=== PATIENT | male | born 1950 | race Caucasian/White ===

== ENCOUNTER 2024-06-11 14:55 | Inpatient (IN) | payer MEDICARE, BC, SELFPAY ==
[2024-06-11] VITALS (7 sets, daily range): BP systolic 147–192; BP diastolic 84–101; PULSE 61–72; RESP 16–18; TEMP 36.2–36.7; O2SAT 95–96; BMI 30.4
--- OUTSIDE RECORDS SUMMARY | 2024-06-11 14:56 | XMS_ITS | Clinical Summary ---
Author Organization [facility] Address [place], [place] [address] Care Team Providers Care Media Manager Name Role Phone Neil Parker MD Primary Care Provider Allergies No known active allergies Medications PRILOSEC 20 MG CAP take 1 capsule (20 mg) by oral route once daily before a meal 0 08/05/2008 Active fluticasone, 50 mcg per actuation, nasal (FLONASE) 50 mcg/Actuation nasal sprayIndication s:Nasal congestion Inhale 2 Sprays into both nostrils once daily. [place] dose in each nostril. 1 Bottle 12 07/26/2009 Active Active Problems Problem Noted Date Diagnosed Date Routine adult health maintenance 07/17/2013 Overview (07/17/2013): Colonoscopy 07/2013 normal repeat in 10 years Unspecified asthma(493.90) 08/13/2006 Simple or unspecified chronic serous otitis medi a 08/13/2006 Other dyspnea and respiratory abnormality 2006 Immunizations Name Administration Dates Next Due Td (Age >=7 Years) 01/03/1999 Tdap 08/05/2008 Family History Medical History Relation Name Comments Diabetes Father Hypertension Father Relation Name Status Comments Father Social History Tobacco Use Types Packs/Day Years Used Date Smoking Tobacco: Never Smokeless Tobacco: Never Tobacco Cessation:Counseling Given: Yes Alcohol Use Standard Drinks/Week Comments No 1.7 (1 standard drink = 0.6 oz p ure alcohol) Sex and Gender Information Value Date Recorded Sex Assigned at Not on file Legal Sex Male 5:42 AM [employer] Gender Identity Not on file Sexual Orientation Not on file Obstetrics History Last Filed Vital Signs Vital Sign Reading Time Taken Comments Blood Pressure 162/91 12/09/2014 5:58 PM CDT Pulse 69 12/09/2014 5:59 PM CDT Temperature 36.9 C (98.5 F) 12/09/2014 5:59 PM CDT Respiratory Rate - - Oxygen Saturation 96% 12/09/2014 5:59 PM CDT Inhaled Oxygen Concentration - - Weight 92.9 kg (204 lb 12.8 oz) 12/09/2014 5:58 PM CDT Height 175.3 cm (5' 9) 07/26/2009 9:27 AM [employer] Body Mass Index 30.24 07/26/2009 9:27 AM [employer] Plan of Treatment Health Maintenance Due Date Last Done Comments Depression screening for age 12+ 1963 BMI (ht and wt on same day) for age 18+ 1969 Hepatitis C screening for age 18-79 1969 Pneumococcal series for age 50+ (1 of 1 - PCV) 2001 Zoster (shingles) series for age 50+ (1 of 2) 2001 Lipids for age 45-75 08/05/2013 08/05/2008 Tetanus booster 08/05/2018 08/05/2008, 01/03/1999 Colonoscopy through age 75 07/17/2023 07/17/2013, COVID-19 vaccine series ( - 2023- season) 2024 Influenza for age 65+ 02/03/2024 RSV vaccine for adults or pr egnancy (1 - 1-dose 75+ series) 2026 Tdap Completed 08/05/2008 Procedures Procedure Name Priority Date/Time Associated Diagnosis Comments LIPID PANEL Routine 08/05/2008 10:41 AM [employer] Lipid Screening from Last 3 Months or Most Recently Relevant to Health Maintenance Results * (ABNORMAL) LIPID PANEL (08/05/2008 10:41 AM [employer]) CHOLESTEROL,TOTAL 189 110 - 199 mg/dL [facility] TRIGLYCERIDES 164(H) <150 mg/dL [facility] HDL CHOLESTEROL 36(L) >40 mg/dL [facility] CHOL/HDL RATIO 5.25(H) <4.51 [facility] LDL CHOLESTEROL 120 <131 mg/dL [facility] PATIENT STATUS Fasting [facility] Blood specimen (specimen) BLOOD SPECIMEN / Unknown 08/05/2008 10:41 AM [employer] 08/05/2008 10:34 AM BE[employer] SEC[employer] JOBS Chon Guo MD CHEMISTRY Final Result [facility] [address] [place] [address] from Last 3 Months or Most Recently Relevant to Health Maintenance Insurance [facility] [employer] Care Teams Media Manager Relationship Specialty Start Date End Date Neil Parker MD PCP - General Family Practice 06/05/13
--- NOTE | 2024-06-11 16:36 | ED.GENADULT ---
HPI - General Adult General Time Seen by Provider: 16:37 Date Seen: 06/11/24 Chief complaint: GI Bleed Stated complaint: bloody stool Time Seen by Provider: 06/11/24 16:35 Source: patient and RN notes reviewed Mode of arrival: ambulatory Limitations: no limitations History of Present Illness HPI narrative: This 74-year-old male is coming to the ER with complaint of bloody stool starting last night. He had a red bloody stool before bed last night, mostly blood. He states he slept okay last night. Since this morning after getting up, has been having blood with stools every hour. He denies any significant abdominal pain or cramping. No fevers chills, no night sweats, no weight loss. He did have a sandwich today, has not noted any change with eating, no nausea or vomiting. He has a remote history of colonoscopy. He has not had any prior melena, is not noted any blood in his stools recently before this. Does have a history of hemorrhoids. He will occasionally take an aspirin but is on no blood thinner. He does not really have a primary care provider. Related Data Home Medications ?Medication ?Instructions ?Recorded ?Confirmed omeprazole 20 mg capsule,delayed 20 mg PO DAILY 06/11/24 06/11/24 release Allergies Allergy/AdvReac Type Severity Reaction Status Date / Time house dust Allergy Unknown Verified 09/25/23 08:25 Review of Systems Status of ROS: Reports: 6 or more systems reviewed and unremarkable except as noted in History and below [facility] Medical History Viral infection ?B34.9 - Viral infection, unspecified (ICD-10) Vertigo ?R42 - Dizziness and giddiness (ICD-10) Lumbar transverse process fracture (03/18/10) ?S32.009A - Unspecified fracture of unspecified lumbar vertebra, initial encounter for closed fracture (ICD-10) Obstructive sleep apnea treated with continuous positive airway pressure (CPAP) ?G47.33 - Obstructive sleep apnea (adult) (pediatric) (ICD-10) Muscle pain ?M79.10 - Myalgia, unspecified site (ICD-10) Environmental allergies (03/18/10) ?Z91.09 - Other allergy status, other than to drugs and biological substances (ICD-10) Encounter for screening for severe acute respiratory syndrome coronavirus 2 (SARS-CoV-2) infection ?Z11.52 - Encounter for screening for COVID-19 (ICD-10) Dizziness ?R42 - Dizziness and giddiness (ICD-10) Asthma (03/18/10) ?J45.909 - Unspecified asthma, uncomplicated (ICD-10) Social History Smoking Status: Never smoker How often do you have a drink containing alcohol: never How often do you have six or more drinks on one occasion: Never AUDIT-C Alcohol total score: 0 Non-prescribed substance use: denies use Exam Const: Vital Signs, click to edit/add: Vital Signs - 24 hr 06/11/24 15:00 06/11/24 17:00 06/11/24 17:24 Temperature 97.1 F L 97.9 F Pulse Rate [Pulse Oximeter] 72 64 Respiratory Rate 16 18 Blood Pressure [Ri ght Upper Arm] 147/84 H 168/87 H Pulse Oximetry 96 95 95 Oxygen Delivery Me thod Room Air Room Air 06/11/24 19:21 Temperature 97.4 F L Pulse Rate [Pulse Oximeter] 65 Respiratory Rate 18 Blood Pressure [Ri ght Upper Arm] 190/101 H Pulse Oximetry 96 Oxygen Delivery Me thod Room Air Patient is alert, interactive, no apparent distress. Sclera clear, atraumatic face. Able speak in complete sentences. Lungs are clear, good air entry, no wheezing crackles. CV regular rate and rhythm, no murmur, normal S1-S2, no S3-S4. Abdomen is soft, nontender, nondistended, do not feel any palpable masses. He has dried blood in the intergluteal fold. Anus appears normal, do not appreciate any active bleeding hemorrhoids. Digital rectal exam is not finding any specific area of tenderness such as a fissure. I feel no mass in the rectal vault. Withdrawal of gloved finger reveals reddish blood, possibly some stool mixed with it. Specimen obtained for fecal occult blood. Documenting provider has reviewed patient's vital signs: yes Course Course ED Course: Patient is very likely having a lower GI bleed. He is hemodynamically stable at this point. Without any abdominal pain or cramping, doubt this to be a colitis picture. Will get a lactate however. Consider imaging if he starts having more abdominal symptoms. This certainly could be a diverticular bleed, underlying mass. Will place IV, get a type and screen and appropriate labs. Initiate 500 mL normal saline while he is being observed here. Reevaluation(s) Time of Reevaluation #1: 19:27 Reevaluation #1: Have updated patient on plan for admission, probable EGD tomorrow which I will order. He will need serial hemoglobins, he is aware that I am going to give him IV Protonix. Will allow him clear liquids. He will have to be NPO at appropriate timing for EGD. We did discuss that he will likely need colonoscopy urgently which will likely happen outpatient but depends on his course. Consultations Consultation #1: Did call our general surgeon to discuss this patient. Would consider having this patient come in the hospital overnight and prep for colonoscopy tomorrow if there is capacity to do colonoscopies tomorrow. She is in the OR any case. Will talk to her when this case is done, there is no emergent need at this time. Have subsequently spoken with Dr. Guzman regarding this patient. She agrees with admission for serial hemoglobins, schedule for EGD in the morning but unlikely that he would be clear for colonoscopy. He could do a more urgent outpatient colonoscopy if able. Do believe that this is likely lower GI bleeding but as Dr. Guzman does point out, large percentage of GI bleeding is upper GI. She would recommend getting him scheduled for the EGD tomorrow, I will give him Protonix. Will update him on the plan. I do know that he is had to go to the bathroom twice while here with some bright red blood per rectum. Time: 17:55 Consultation #2: Have spoken with the hospitalist, reviewed case. Reviewed that he did put the order for Protonix an EGD in. She accepts. Spoke with Dr. Gaffney. Time: 19:34 Vital Signs Vital signs: Initial Vital Signs Temperature 97.1 F L 06/11/24 15:00 Temperature Source Temporal Artery Scan 06/11/24 15:00 Pulse Rate 72 06/11/24 15:00 Respiratory Rate 16 06/11/24 15:00 Blood Pressure 147/84 H 06/11/24 15:00 Blood Pressure Mean 105 06/11/24 15:00 Blood Pressure Position Sitting 06/11/24 15:00 Pulse Oximetry 96 06/11/24 15:00 Oxygen Delivery Method Room Air 06/11/24 15:00 Vital Signs Temperature 97.1 F L 06/11/24 15:00 Pulse Rate 72 06/11/24 15:00 Respiratory Rate 16 06/11/24 15:00 Blood Pressure 147/84 H 06/11/24 15:00 Pulse Oximetry 96 06/11/24 15:00 Oxygen Delivery Method Room Air 06/11/24 15:00 Temperature 97.4 F L 06/11/24 19:21 Pulse Rate 65 06/11/24 19:21 Respiratory Rate 18 06/11/24 19:21 Blood Pressure 190/101 H 06/11/24 19:21 Pulse Oximetry 96 06/11/24 19:21 Oxygen Delivery Method Room Air 06/11/24 19:21 Medications Administered Medications: Discontinued Medications Generic Name Dose Route Start Last Admin Trade Name Freq PRN Reason Stop Dose Admin Sodium Chloride 500 mls @ 500 mls/hr 06/11/24 16:48 06/11/24 18:42 0.9 % Sodium Chloride 500 Ml IV 06/11/24 17:47 Infused .Q1H ONE Infusion Medical Decision Making Lab Data Lab results reviewed: Yes I reviewed the patient's lab results Labs: Lab Results 06/11/24 06/11/24 Range/Units 17:06 Unknown WBC 8.40 (4.50-11.00) K/uL RBC 4.12 L (4.30-5.90) m/uL Hgb 13.4 L (13.5-17.5) gm/dL Hct 39.6 (37.0-53.0) % MCV 96 (80-100) fL MCH 33 (26-34) pg MCHC 34 (32-36) gm/dL RDW Coeff of Mk 13.9 (11.5-15.5) % Plt Count 364 (140-440) K/uL Neut % (Auto) 65.9 (42.0-72.0) % Lymph % (Auto) 20.1 (20-44) % [place] % (Auto) 8.2 (0.0-11.0) % Eos % (Auto) 4.5 (0.0-7.0) % Baso % (Auto) 1.1 (0.0-3.0) % Neut # (Auto) 5.53 (1.7-7.0) K/uL Lymph # (Auto) 1.69 (0.90-2.90) K/uL [place] # (Auto) 0.70 (0.00-0.90) K/UL Eos # (Auto) 0.38 (0.00-0.50) K/uL Baso # (Auto) 0.09 (0.00-0.30) K/uL Abs Immat Gran (auto) 0.02 (0.00-0.30) K/uL Imm/Tot Granulo (auto) 0.2 % INR 1.05 (0.91-1.10) APTT 25 (23-33) Seconds Sodium 139 (135-149) mmol/L Potassium 4.4 (3.6-5.1) mmol/L Chloride 110 (96-114) mmol/L Carbon Dioxide 24 (20-32) mmol/L Anion Gap 5 L (7-15) mEq/L BUN 21 (7-30) mg/dL Creatinine 0.9 (0.5-1.5) mg/dL Estimated Creat Clear 63.65 Estimated GFR 90 ml/min Glucose 94 (60-115) mg/dL Lactate 1.7 (0.5-1.9) mmol/L Calcium 8.8 (8.4-10.6) mg/dL Total Bilirubin 1.0 (0.1-1.5) mg/dL AST 22 (12-35) U/L ALT 23 (4-50) U/L Alkaline Phosphatase 57 (40-150) U/L C-Reactive Protein < 0.5 L (0.5-1.0) mg/dL Total Protein 6.0 (6.0-8.3) g/dL Albumin 3.5 (3.3-5.0) g/dL Stool Occult Blood Positive (Negative) Blood Type A Positive Antibody Screen NEGATIVE Discharge Plan Discharge Clinical Impression: BRBPR (bright red blood per rectum) Patient Disposition: Admitted As Observation Condition: Stable Prescriptions: No Action omeprazole 20 mg capsule,delayed release(DR/EC) 20 mg PO DAILY Follow Up/Referrals: Yousif Dalton MD [Primary Care Provider] -
[2024-06-11 17:13] LABS: Basophils Absolute Auto 0.09 K/uL (0.00-0.30); Basophils Percent Auto 1.1 % (0.0-3.0); Eosinophils Absolute Auto 0.38 K/uL (0.00-0.50); Eosinophils Percent Auto 4.5 % (0.0-7.0); Hematocrit 39.6 % (37.0-53.0); Hemoglobin* 13.4 gm/dL (13.5-17.5); Immature Granulocytes Abs Auto 0.02 K/uL (0.00-0.30); Immature Granulocytes Pct Auto 0.2 %; Lactate* 1.7 mmol/L (0.5-1.9); Lymphocytes Absolute Auto 1.69 K/uL (0.90-2.90); Lymphocytes Percent Auto 20.1 % (20-44); Mean Corpuscular HGB Conc 34 gm/dL (32-36); Mean Corpuscular Hemoglobin 33 pg (26-34); Mean Corpuscular Volume 96 fL (80-100); Monocytes Percent Auto 8.2 % (0.0-11.0); Neutrophils Absolute Auto 5.53 K/uL (1.7-7.0); Neutrophils Percent Auto 65.9 % (42.0-72.0); Platelet Count* 364 K/uL (140-440); RDW Coefficient of Variation % 13.9 % (11.5-15.5); Red Blood Count 4.12 m/uL (4.30-5.90)
--- OUTSIDE RECORDS SUMMARY | 2024-06-11 17:16 | XMS_ITS | Clinical Summary ---
Author Organization [facility] [facility] Address [place], [place] [address] Care Team Providers Care Percussion Teacher Name Role Phone Neil Parker MD Primary Care Provider [phone] Allergies No known active allergies Medications PRILOSEC 20 MG CAP take 1 capsule (20 mg) by oral route once daily before a meal 0 08/05/2008 Active fluticasone, 50 mcg per actuation, nasal (FLONASE) 50 mcg/Actuation nasal sprayIndication s:Nasal congestion Inhale 2 Sprays into both nostrils once daily. [place] dose in each nostril. 1 Bottle 12 [...] on file Legal Sex Male 5:42 AM DIALYSIS REGISTERED NURSE Gender Identity Not on file Sexual Orientation [...] 175.3 cm (5' 9) 07/26/2009 9:27 AM DIALYSIS REGISTERED NURSE Body Mass Index 30.24 07/26/2009 9:27 AM DIALYSIS REGISTERED NURSE Plan of Treatment Health Maintenance Due Date [...] Comments LIPID PANEL Routine 08/05/2008 10:41 AM DIALYSIS REGISTERED NURSE Lipid Screening from Last 3 Months or Most Recently Relevant to Health Maintenance Results * (ABNORMAL) LIPID PANEL (08/05/2008 10:41 AM DIALYSIS REGISTERED NURSE) CHOLESTEROL,TOTAL 189 110 - 199 mg/dL [facility] TRIGLYCERIDES 164(H) <150 mg/dL [facility] HDL CHOLESTEROL 36(L) >40 mg/dL [facility] CHOL/HDL RATIO 5.25(H) <4.51 [facility] LDL CHOLESTEROL 120 <131 mg/dL [facility] PATIENT STATUS Fasting [facility] Blood specimen (specimen) BLOOD SPECIMEN / Unknown 08/05/2008 10:41 AM DIALYSIS REGISTERED NURSE 08/05/2008 10:34 AM DIALYSIS REGISTERED NURSE Chon Guo MD CHEMISTRY Final Result [facility] [address] [place] [address] from Last 3 Months or Most Recently Relevant to Health Maintenance Insurance [facility] [employer] Care Teams Percussion Teacher Relationship Specialty Start Date End Date Neil Parker MD PCP - General Family Practice 06/05/13
[2024-06-11 17:19] LABS: Fecal Occult Blood* Positive (Negative)
[2024-06-11] MEDS: 0.9 % SODIUM CHLORIDE 500 ML 500 ML IV (17:20)
[2024-06-11 17:24] LABS: Slide Review Reflex No
[2024-06-11 17:29] LABS: Albumin* 3.5 g/dL (3.3-5.0); Chloride* 110 mmol/L (96-114)
[2024-06-11 17:30] LABS: Potassium* 4.4 mmol/L (3.6-5.1); Sodium* 139 mmol/L (135-149)
[2024-06-11 17:32] LABS: Creatinine* 0.9 mg/dL (0.5-1.5); Est. Creatinine Clearance* 63.65; Estimated Glomerular Filt Rate 90 ml/min
[2024-06-11 17:33] LABS: Alanine Aminotransferase* 23 U/L (4-50); Alkaline Phosphatase* 57 U/L (40-150); Anion Gap 5 mEq/L (7-15); Aspartate Amino Transferase* 22 U/L (12-35); Blood Urea Nitrogen* 21 mg/dL (7-30); Calcium* 8.8 mg/dL (8.4-10.6); Carbon Dioxide* 24 mmol/L (20-32); Glucose* 94 mg/dL (60-115)
[2024-06-11 17:43] LABS: C Reactive Protein* < 0.5 mg/dL (0.5-1.0)
[2024-06-11 18:39] LABS: INR 1.05 (0.91-1.10); Partial Thromboplastin Time* 25 Seconds (23-33); Prothrombin Time 14.5 Seconds
[2024-06-11] MEDS: PANTOPRAZOLE SODIUM 40 MG INJ 80 MG IVP (19:42)
--- NOTE | 2024-06-11 20:20 | PM.IMHP1 ---
Hospitalist- H&P: HPI History of Present Illness Date Seen: 06/11/24 Chief complaint: bloody stool Narrative: Tim Tam is a 74 year old male w/out prior Hx of GIB and no significant past medical history except for GERD for which patient uses omeprazole presents to the ED complaining of frequent mostly bloody bowel movements that started yesterday night before he goes to sleep and continued today on an hourly basis until this history was taken. Patient described blood clots and bright red blood per rectum. Patient denies lightheadedness, chest pain or shortness breath. He also denies abdominal pain.? Patient denies any history of gastritis or peptic ulcer disease.? No history of liver problems, patient does not use alcohol. ?Patient mentioned that he uses NSAIDs frequently.? He uses ibuprofen at least 5 times a week. Last colonoscopy was about 11 years ago and it was done for screening any did not show any polyps or other abnormalities per the patient. At the ED, patient was hemodynamically stable, not tachycardic or hypotensive. ?Stool occult blood was positive. ?Hemoglobin was 13.4. ?ED discussed with General surgery who recommended an EGD tomorrow followed by bowel prep and colonoscopy. Review of Systems Status of ROS: Reports: 6 or more systems reviewed and unremarkable except as noted in History and below [facility] Medical History Viral infection ?B34.9 - Viral infection, unspecified (ICD-10) Vertigo ?R42 - Dizziness and giddiness (ICD-10) Lumbar transverse process fracture (03/18/10) ?S32.009A - Unspecified fracture of unspecified lumbar vertebra, initial encounter for closed fracture (ICD-10) Obstructive sleep apnea treated with continuous positive airway pressure (CPAP) ?G47.33 - Obstructive sleep apnea (adult) (pediatric) (ICD-10) Muscle pain ?M79.10 - Myalgia, unspecified site (ICD-10) Environmental allergies (03/18/10) ?Z91.09 - Other allergy status, other than to drugs and biological substances (ICD-10) Encounter for screening for severe acute respiratory syndrome coronavirus 2 (SARS-CoV-2) infection ?Z11.52 - Encounter for screening for COVID-19 (ICD-10) Dizziness ?R42 - Dizziness and giddiness (ICD-10) Asthma (03/18/10) ?J45.909 - Unspecified asthma, uncomplicated (ICD-10) Social History What is your current living situation?: I presently have a place to live Problems where you live: no known problems Problems where you live details: n/a In the past 12 months, utilities in danger of being shut off: no In past 12 months, lack of transportation kept you from medical appts, meetings, work, or getting things needed for daily living: no In the past 12 mos, have been you worried that your food would run out before you had money to buy more?: never true In the past 12 mos, the food you bought just didn't last and you didn't have money to buy more?: never true Highest level of school completed/degree received: GED or equivalent Smoking Status: Never smoker Do you use any of these nicotine containing products: None How often do you have a drink containing alcohol: never How often do you have six or more drinks on one occasion: Never AUDIT-C Alcohol total score: 0 Non-prescribed substance use: denies use Caffeine: Yes How often does anyone, including family, friends and others, physically hurt you: never How often does anyone, including family, friends and others, insult or talk down to you: never How often does anyone, including family, friends and others, threaten you with harm: never How often does anyone, including family, friends and others, scream or curse at you: never Meds Home Medications and Allergies Home Medications ?Medication ?Instructions ?Recorded ?Confirmed ?Type omeprazole 20 mg capsule,delayed 20 mg PO DAILY 06/11/24 06/11/24 History release Allergies Allergy/AdvReac Type Severity Reaction Status Date / Time house dust Allergy Unknown Verified 09/25/23 08:25 Exam Narrative: Exam Narrative: Physical exam GENERAL: Comfortable, no acute distress. HEAD AND NECK: Atraumatic, normocephalic CARDIOVASCULAR: RRR. Normal S1, S2. No murmurs. RESPIRATORY: Clear to auscultation B/L. Good air entry B/L. No wheezes or rhonchi. GASTROINTESTINAL: Not distended, not tender to palpation. No guarding and no rigidity NEUROLOGY: Alert, awake, oriented X 3. Normal speech. PSYCH: Normal mood, normal affect. Const: Vital Signs, click to edit/add: Vital Signs - 24 hr 06/11/24 15:00 06/11/24 17:00 06/11/24 17:24 Temperature 97.1 F L 97.9 F Pulse Rate Pulse Rate [Pulse Oximeter] 72 64 Respiratory Rate 16 18 Blood Pressure Blood Pressure [Ri ght Arm] Blood Pressure [Ri ght Upper Arm] 147/84 H 168/87 H Pulse Oximetry 96 95 95 Oxygen Delivery Me thod Room Air Room Air 06/11/24 19:21 06/11/24 19:21 06/11/24 19:42 Temperature 97.4 F L Pulse Rate 66 64 Pulse Rate [Pulse Oximeter] 65 Respiratory Rate 18 16 Blood Pressure 180/101 H Blood Pressure [Ri ght Arm] Blood Pressure [Ri ght Upper Arm] 190/101 H Pulse Oximetry 96 96 95 Oxygen Delivery Me thod Room Air 06/11/24 20:10 Temperature 98.1 F Pulse Rate Pulse Rate [Pulse Oximeter] 61 Respiratory Rate 18 Blood Pressure Blood Pressure [Ri ght Arm] 166/97 H Blood Pressure [Ri ght Upper Arm] Pulse Oximetry 95 Oxygen Delivery Me thod Room Air Hospitalist - H&P: Result Labs Labs: Short CBC 06/11/24 Range/Units 17:06 WBC 8.40 (4.50-11.00) K/uL Hgb 13.4 L (13.5-17.5) gm/dL Hct 39.6 (37.0-53.0) % Plt Count 364 (140-440) K/uL BMP 06/11/24 17:06 Sodium 139 Potassium 4.4 Chloride 110 Carbon Dioxide 24 BUN 21 Creatinine 0.9 Glucose 94 Calcium 8.8 Liver Function 06/11/24 Range/Units 17:06 Total Bilirubin 1.0 (0.1-1.5) mg/dL AST 22 (12-35) U/L ALT 23 (4-50) U/L Alkaline Phosphatase 57 (40-150) U/L Albumin 3.5 (3.3-5.0) g/dL Assessment and Plan Assessment and plan (1) BRBPR (bright red blood per rectum): Problem comment: NPO PPI BID Insert 2 large-bore IV cannulas. Trend hemoglobin and hematocrit Blood Type and screen Ordered a stat abdomen and pelvis CT scan with GI bleed protocol. ED discussed with General surgery who recommended an EGD tomorrow followed by bowel prep and colonoscopy. Status: Acute (2) GERARDO (obstructive sleep apnea): Problem comment: On CPAP Status: Acute Assessment and Plan: As above (3) GERD (gastroesophageal reflux disease): Problem comment: Omeprazole at home Status: Acute (4) Excessive use of nonsteroidal anti-inflammatory drugs (NSAIDs): Status: Acute Total Time Spent Total Time Spent: Time spent: Today I spent 75 minutes seeing the patient, discussing the patient with ER staff, reviewing Expanse and EPIC notes/diagnostics, discussing the care plan with our care time that includes social work, PT/OT, pharmacy, RT, detention and documenting my impressions and plan in the medical record.
--- NOTE | 2024-06-11 21:07 | CRLHL7_ITS ---
For Patients: As a result of the Century Cures Act, medical imaging exams and procedure reports are released immediately into your electronic medical record. You may view this report before your referring provider. If you have questions, please contact your health care provider. INDICATION: GI bleed since yesterday. TECHNIQUE: CT abdomen and pelvis acquired before and after the administration of 95 cc Isovue 370 IV contrast in the arterial and venous phases. COMPARISON: None. FINDINGS: Lower chest: Scattered atelectasis. Liver: Unremarkable. Normal in size and attenuation. No suspicious masses. Gallbladder and bile ducts: Unremarkable. No stones or inflammation. No biliary dilatation. Pancreas: Unremarkable. No mass or inflammation. Spleen: Unremarkable. Normal in size. No masses. Adrenal glands: Tiny right adrenal nodule likely adenoma. Kidneys: Exophytic left renal cyst. Additional tiny cortical hypodensities, too small to characterize. No suspicious masses, stones, or hydronephrosis. GI tract: Sigmoid colonic diverticulosis. Focal extravasation of contrast during the arterial phase with venous pooling seen in the proximal sigmoid colon (series 5/image 245, series 6/image 62). No diverticulitis. No bowel obstruction. Normal appendix. Vasculature: Abdominal aorta is normal in caliber. Mesenteric arteries are patent. Lymph nodes: No lymphadenopathy. Peritoneum/Abdominal Wall: Unremarkable. No sign of mass or infiltration. No free air or significant free fluid. Pelvis: Prostatomegaly. Bones: Unremarkable for age. IMPRESSION: Acute GI bleed arising from the proximal sigmoid colon, likely from active diverticular hemorrhage. Case discussed with Kassidy Gaffney at 11:23 p.m. on 06/11/2024. Please note that all CT scans at this facility use dose modulation, iterative reconstruction, and/or weight-based dosing when appropriate to reduce radiation dose to as low as reasonably achievable. Dictated by Pedrito Watson MD @ 06/11/2024 11:27:43 PM (Electronically Signed)
[2024-06-11 21:59] LABS: Hemoglobin* 12.8 gm/dL (13.5-17.5)
[2024-06-11] MEDS: SODIUM CHLORIDE 0.9 % (FLUSH) 10 ML SYRINGE 5 ML IVF (22:33)
[2024-06-12] VITALS (17 sets, daily range): BP systolic 98–178; BP diastolic 71–94; PULSE 58–80; RESP 16–18; TEMP 35.6–36.9; O2SAT 91–98
--- NOTE | 2024-06-12 01:37 | CRLHL7_ITS ---
For Patients: As a result of the Century Cures Act, medical imaging exams and procedure reports are released immediately into your electronic medical record. You may view this report before your referring provider. If you have questions, please contact your health care provider. Indication: Fall with head strike Technique: Noncontrast CT through the head with multiplanar reformats Comparison: CT head performed 07/13/2015 Findings: Brain: No acute hemorrhage. No acute infarct. No significant mass effect or midline shift. No gross evidence of a mass lesion or cerebral edema. Mild chronic microvascular ischemic disease. Ventricles: No acute abnormality appreciated. Orbits, sinuses, mastoids: No acute abnormality appreciated. Findings of chronic sinusitis with mild mucosal thickening and an air-fluid level in the right maxillary sinus. Calvarium and soft tissues: Left convexity scalp contusion, no underlying fracture appreciated. Impression: 1. Left convexity scalp contusion, no other acute traumatic abnormality appreciated. 2. Question acute on chronic right maxillary sinusitis. Please note that all CT scans at this facility use dose modulation, iterative reconstruction, and/or weight-based dosing when appropriate to reduce radiation dose to as low as reasonably achievable. Dictated by Job Winter MD @ 06/12/2024 2:17:15 AM (Electronically Signed)
[2024-06-12] MEDS: 0.9 % SODIUM CHLORIDE 1000 ml 1,000 ML IV (02:10)
--- NOTE | 2024-06-12 03:11 | W.PM.TELEPRO ---
Progress Note: A&P Assessment and plan (1) Excessive use of nonsteroidal anti-inflammatory drugs (NSAIDs): Status: Acute (2) GERD (gastroesophageal reflux disease): Problem details: Omeprazole at home Status: Acute (3) BRBPR (bright red blood per rectum): Problem details: NPO PPI BID Insert 2 large-bore IV cannulas. Trend hemoglobin and hematocrit Blood Type and screen Ordered a stat abdomen and pelvis CT scan with GI bleed protocol. ED discussed with General surgery who recommended an EGD tomorrow followed by bowel prep and colonoscopy. Status: Acute (4) Syncope: Status: Acute (5) Head trauma: Status: Acute Plan I jumped on screen and I was able to assess the patient. I ordered a CT of his head without contrast stat. This did not show any acute intracranial injury. In addition, the patient underwent bolus IV fluids and transfusion of 1 unit of blood. After the bolus of fluids, the patient felt significantly better. Patient was feeling better and he appeared better. He was not having any additional bleeding. Telehealth Visit Today's History and Physical is provided via interactive telehealth by Dr. Zachery Jack MD. Patient is located at [place]. Provider is located at [facility]. Nursing staff assisted with the patient's examination. The visit being done today meets criteria for a telehealth visit and the patient or patient's parent and/or gaurdian is aware the visit is a telehealth visit. Camera Start Time 1:45 AM Camera End Time 2:00 AM Telehealth Hospitalist-PN: Sub Subjective Interval History: Tim Tam is seen as an Interactive Telehealth visit. Tim Tam is a 74 year old male who is Patient was seen and examined. Patient was admitted to hospital due to a GI bleed. Patient underwent a upper GI series which showed active bleeding. Since admission to the hospital, the patient is at multiple red bowel movements. I was contacted after the patient had multiple red bowel movements and had a transient episode of hypotension. Patient's hemoglobin however remained stable but clinically the patient did not look good. Prior to being contacted, the patient had a fall, syncope and hit his head. This was after he was getting out of the bathroom. I jumped on screen and I was able to assess the patient. I ordered a CT of his head without contrast stat. This did not show any acute intracranial injury. In addition, the patient underwent bolus IV fluids and transfusion of 1 unit of blood. After the bolus of fluids, the patient felt significantly better. Patient was feeling better and he appeared better. He was not having any additional bleeding. They feel comfortable monitoring him. Telehealth Visit Today's History and Physical is provided via interactive telehealth by Dr. Zachery Jack MD. Patient is located at [place]. Provider is located at [facility]. Nursing staff assisted with the patient's examination. The visit being done today meets criteria for a telehealth visit and the patient or patient's parent and/or gaurdian is aware the visit is a telehealth visit. Camera Start Time 1:45 AM Camera End Time 2:00 AM Exam Narrative Exam Narrative: Physical Exam GENERAL: ?vital signs reviewed, well developed and nourished, in no distress HEENT: pupils are equal round and reactive to light, extraocular movements are grossly within normal limits and oral mucosa is moist. NECK: Supple without lymphadenopathy or thyromegaly according to nursing staff examination observation HEART: Regular rate and rhythm without any rubs, murmurs, or gallops. LUNGS: Clear to auscultation bilaterally with good air movement throughout ABDOMEN: Observation from nurse assisted exam, abdomen appears soft, nontender, and nondistended with Positive bowel sounds noted. EXTREMITIES: Strength and sensation is observed to be grossly within normal limits in the upper and lower extremities.? No focal strength deficit is observed. SKIN:? Observed warm and dry with color normal Const Vital Signs, click to edit/add: Vital Signs - 24 hr 06/11/24 15:00 06/11/24 17:00 06/11/24 17:24 Temperature 97.1 F L 97.9 F Pulse Rate Pulse Rate [Pulse Oximeter] 72 64 Respiratory Rate 16 18 Blood Pressure Blood Pressure [Right Arm] Blood Pressure [Right Upper Arm] 147/84 H 168/87 H Pulse Oximetry 96 95 95 Oxygen Delivery Method Room Air Room Air 06/11/24 19:21 06/11/24 19:21 06/11/24 19:42 Temperature 97.4 F L Pulse Rate 66 64 Pulse Rate [Pulse Oximeter] 65 Respiratory Rate 18 16 Blood Pressure 180/101 H Blood Pressure [Right Arm] Blood Pressure [Right Upper Arm] 190/101 H Pulse Oximetry 96 96 95 Oxygen Delivery Method Room Air 06/11/24 20:10 06/11/24 23:41 06/12/24 00:36 Temperature 98.1 F 97.8 F Pulse Rate 66 Pulse Rate [Pulse Oximeter] 61 64 Respiratory Rate 18 16 Blood Pressure Blood Pressure [Right Arm] 166/97 H 192/97 H Blood Pressure [Right Upper Arm] Pulse Oximetry 95 95 Oxygen Delivery Method Room Air Room Air 06/12/24 02:11 06/12/24 02:31 06/12/24 03:01 Temperature 96.1 F L 96.8 F L 96.4 F L Pulse Rate 58 L 63 63 Pulse Rate [Pulse Oximeter] Respiratory Rate 18 18 18 Blood Pressure 158/83 H 169/86 H 139/81 Blood Pressure [Right Arm] Blood Pressure [Right Upper Arm] Pulse Oximetry 94 98 93 Oxygen Delivery Method Room Air Room Air Room Air Labs Labs: Laboratory Results - last 24 hr 06/11/24 06/11/24 06/11/24 17:06 21:29 21:43 WBC 8.40 RBC 4.12 L Hgb 13.4 L 12.8 L Hct 39.6 MCV 96 MCH 33 MCHC 34 RDW Coeff of Mk 13.9 Plt Count 364 Neut % (Auto) 65.9 Lymph % (Auto) 20.1 [place] % (Auto) 8.2 Eos % (Auto) 4.5 Baso % (Auto) 1.1 Neut # (Auto) 5.53 Lymph # (Auto) 1.69 [place] # (Auto) 0.70 Eos # (Auto) 0.38 Baso # (Auto) 0.09 Abs Immat Gran (auto) 0.02 Imm/Tot Granulo (auto) 0.2 INR 1.05 APTT 25 Sodium 139 Potassium 4.4 Chloride 110 Carbon Dioxide 24 Anion Gap 5 L BUN 21 Creatinine 0.9 Estimated Creat Clear 63.65 Estimated GFR 90 Glucose 94 Lactate 1.7 Calcium 8.8 Total Bilirubin 1.0 AST 22 ALT 23 Alkaline Phosphatase 57 C-Reactive Protein < 0.5 L Total Protein 6.0 Albumin 3.5 Stool Occult Blood Blood Type A Positive A Positive Antibody Screen NEGATIVE NEGATIVE Crossmatch (AHG) See Detail 06/11/24 06/12/24 Unknown 01:10 WBC RBC Hgb 12.0 L Hct MCV MCH MCHC RDW Coeff of Mk Plt Count Neut % (Auto) Lymph % (Auto) [place] % (Auto) Eos % (Auto) Baso % (Auto) Neut # (Auto) Lymph # (Auto) [place] # (Auto) Eos # (Auto) Baso # (Auto) Abs Immat Gran (auto) Imm/Tot Granulo (auto) INR APTT Sodium Potassium Chloride Carbon Dioxide Anion Gap BUN Creatinine Estimated Creat Clear Estimated GFR Glucose Lactate Calcium Total Bilirubin AST ALT Alkaline Phosphatase C-Reactive Protein Total Protein Albumin Stool Occult Blood Positive Blood Type Antibody Screen Crossmatch (AHG) Telehealth: Statement Statement Telehealth Visit: Today's History and Physical is provided via interactive telehealth by Zachery Jack MD.? Patient is located at [facility].? Provider is located at [employer] [facility].? Nursing staff assisted with the patient's exam. The visit being done today meets criteria for a telehealth visit and the patient or patient?s parent/guardian is aware the visit is a telehealth visit.
[2024-06-12] MEDS: ONDANSETRON 2 MG/ML inj 4 MG IVP ×4 (03:31→19:39)
--- NOTE | 2024-06-12 04:05 | PC.NURSE ---
Around 0130 pt pulled his bathroom alarm. once writer technical publications and another RN entered the bathroom pt was on the floor on his right side. pt was hard to arouse at first. code called. more staff arrived and at that time pt was awake and could tell writer technical publications his name and where he was. he reported dizziness and nausea. pt was pale and diaphoretic. Koby lift used to get pt back to bed. once back in bed BP 152/72 HR 60 O2 95% temp 97.1. Pt reported feeling sweaty on the toilet and remembers pulling the call light but nothing after. Pt has contusion on right side of head. neuros normal. BS 129. EKG done. MD contacted. see orders. Pt went to CT and brought back to CCU1. At this time pt reports nausea and dizziness had resolved. writer technical publications ask pt if he wanted writer technical publications to contact and he requested to call later in the morning.
[2024-06-12] MEDS: PROCHLORPERAZINE 5 MG/ML VIAL IV ×2 (04:42→18:32)
[2024-06-12] MEDS: PANTOPRAZOLE SODIUM 40 MG INJ IVP ×2 (06:15→18:12)
[2024-06-12 06:55] LABS: Hematocrit 38.1 % (37.0-53.0); Hemoglobin* 12.9 gm/dL (13.5-17.5); Mean Corpuscular HGB Conc 34 gm/dL (32-36); Mean Corpuscular Hemoglobin 32 pg (26-34); Mean Corpuscular Volume 96 fL (80-100); Platelet Count* 336 K/uL (140-440); Red Blood Count 3.98 m/uL (4.30-5.90); White Blood Count* 15.18 K/uL (4.50-11.00)
[2024-06-12 06:58] LABS: Slide Review Reflex No
[2024-06-12 07:10] LABS: Albumin* 3.2 g/dL (3.3-5.0); Chloride* 109 mmol/L (96-114)
[2024-06-12 07:11] LABS: Potassium* 4.1 mmol/L (3.6-5.1); Sodium* 141 mmol/L (135-149)
[2024-06-12 07:13] LABS: Alanine Aminotransferase* 24 U/L (4-50); Alkaline Phosphatase* 54 U/L (40-150); Anion Gap 5 mEq/L (7-15); Aspartate Amino Transferase* 27 U/L (12-35); Bilirubin Total* 1.4 mg/dL (0.1-1.5); Blood Urea Nitrogen* 17 mg/dL (7-30); Carbon Dioxide* 27 mmol/L (20-32); Est. Creatinine Clearance* 63.65; Estimated Glomerular Filt Rate 79 ml/min
[2024-06-12 07:14] LABS: Calcium* 8.4 mg/dL (8.4-10.6); Glucose* 130 mg/dL (60-115); Magnesium* 2.2 mg/dL (1.5-2.6); Total Protein* 5.8 g/dL (6.0-8.3)
--- NOTE | 2024-06-12 07:36 | PC.NURSE ---
End of shift [id number]: A&O pleasant and cooperative. upon initial assessment pt denying any light headed/dizziness. hypertensive otherwise vitally stable. see event note regarding fall. 1 unit of PRBC. pt tolerated infusion well. during blood transfusion A2 to commode. pt did not tolerate. he became dizzy and nauseous. he was put back to bed. pt remained vitally stable. pt reporting intermittent nausea. see eMAR. pt was unable to void this morning. bladder scanned for >700. straight cathed for 900cc. x2 bloody stools overnight but no stools since fall. updated this morning per pt request. using call light appropriately.
[2024-06-12] MEDS: SODIUM CHLORIDE 0.9 % (FLUSH) 10 ML SYRINGE 5 ML IVF ×2 (08:47→19:40)
[2024-06-12 09:03] LABS: Hemoglobin* 12.1 gm/dL (13.5-17.5)
[2024-06-12] MEDS: LACTATED RINGERS 1000 ML 1,000 ML 125 ML IV ×2 (09:35→18:11)
[2024-06-12] MEDS: LACTATED RINGERS 500 ML 500 ML IV (09:35)
[2024-06-12 14:37] LABS: Hemoglobin* 11.4 gm/dL (13.5-17.5)
[2024-06-12] MEDS: PEG-3350 SODIUM CL/BICARB-KCL 4,000 ML SOLN 4000 ML PO (15:55)
--- NOTE | 2024-06-12 16:34 | P.IMPN_ITS ---
Progress Note: A&P Assessment and plan (1) BRBPR (bright red blood per rectum): Problem details: Likely due to diverticular bleeding in the sigmoid. Bleeding is not improved and so he is no longer a candidate for interventional radiology. Will arrange colonoscopy for tomorrow. Status: Acute (2) Acute blood loss anemia: Problem details: Likely due to diverticular bleeding. Received 1 unit of blood transfusion after syncope. Transfuse as needed Status: Acute (3) Syncope: Problem details: During the night had a syncopal episode presumably secondary to blood loss and vasovagal symptoms. Received 1 unit blood transfusion and additional IV fluids. Status: Acute (4) Head trauma: Problem details: Head injury when he had syncope. No neurologic problems. Head CT without bleeding Status: Acute (5) GERD (gastroesophageal reflux disease): Problem details: Omeprazole at home Status: Acute Plan Patient admitted to the hospital for ongoing evaluation management of gastrointestinal bleeding. Since his bleeding is improved he will undergo urgent colonoscopy tomorrow. Total time spent today is 80 minutes in reviewing outside records, evaluation management of the patient and discussing with patient and ongoing care and also discussing with Interventional Radiology, surgery, GI plan of care. Subjective Date Seen: 06/12/24 Interval history: 74-year-old male was otherwise healthy admitted through the emergency department with a one-day history of bright red blood per rectum. He reports feeling lightheaded and nauseated. No vomiting. No previous history of GI bleeding. No anticoagulation. Occasionally takes ibuprofen and regularly takes omeprazole for GERD. Last colonoscopy was 11 years ago and was entirely normal. He has Hemoccult-positive stool. CT angiogram showed bleeding in the sigmoid. During the night he stood up and went to the bathroom and had a syncopal episode. He has subsequently been quite orthostatic with systolic pressures in the 70s when he stands up. He has received IV fluid bolus with improvement in his symptoms. Exam Narrative: Exam Narrative: He is alert and appears in no distress. Oropharynx is normal. Respirations are clear to auscultation. Cardiovascular: S1, S2, regular rate and rhythm. Abdomen: Bowel sounds active. Abdomen is soft without tenderness. Extremities without edema. Const: Vital Signs, click to edit/add: Vital Signs - 24 hr 06/11/24 17:00 06/11/24 17:24 06/11/24 19:21 Temperature 97.9 F 97.4 F L Pulse Rate Pulse Rate [Pulse Oximeter] 64 65 Pulse Rate [orthos tatic lying Pulse Oximeter] Pulse Rate [orthos tatic sitting Puls e Oximeter] Pulse Rate [orthos tatic standing Pul se Oximeter] Respiratory Rate 18 18 Blood Pressure Blood Pressure [Le ft Arm] Blood Pressure [Ri ght Arm] Blood Pressure [Ri ght Upper Arm] 168/87 H 190/101 H Blood Pressure [or thostatic lying Le ft Arm] Blood Pressure [or thostatic sitting Left Arm] Blood Pressure [or thostatic standing Left Arm] Pulse Oximetry 95 95 96 Oxygen Delivery Me thod Room Air Room Air 06/11/24 19:21 06/11/24 19:42 06/11/24 20:10 Temperature 98.1 F Pulse Rate 66 64 Pulse Rate [Pulse Oximeter] 61 Pulse Rate [orthos tatic lying Pulse Oximeter] Pulse Rate [orthos tatic sitting Puls e Oximeter] Pulse Rate [orthos tatic standing Pul se Oximeter] Respiratory Rate 16 18 Blood Pressure 180/101 H Blood Pressure [Le ft Arm] Blood Pressure [Ri ght Arm] 166/97 H Blood Pressure [Ri ght Upper Arm] Blood Pressure [or thostatic lying Le ft Arm] Blood Pressure [or thostatic sitting Left Arm] Blood Pressure [or thostatic standing Left Arm] Pulse Oximetry 96 95 95 Oxygen Delivery Me thod Room Air 06/11/24 23:41 06/12/24 00:36 06/12/24 02:11 Temperature 97.8 F 96.1 F L Pulse Rate 66 58 L Pulse Rate [Pulse Oximeter] 64 Pulse Rate [orthos tatic lying Pulse Oximeter] Pulse Rate [orthos tatic sitting Puls e Oximeter] Pulse Rate [orthos tatic standing Pul se Oximeter] Respiratory Rate 16 18 Blood Pressure 158/83 H Blood Pressure [Le ft Arm] Blood Pressure [Ri ght Arm] 192/97 H Blood Pressure [Ri ght Upper Arm] Blood Pressure [or thostatic lying Le ft Arm] Blood Pressure [or thostatic sitting Left Arm] Blood Pressure [or thostatic standing Left Arm] Pulse Oximetry 95 94 Oxygen Delivery Me thod Room Air Room Air 06/12/24 02:31 06/12/24 03:01 06/12/24 03:31 Temperature 96.8 F L 96.4 F L 97.4 F L Pulse Rate 63 63 64 Pulse Rate [Pulse Oximeter] Pulse Rate [orthos tatic lying Pulse Oximeter] Pulse Rate [orthos tatic sitting Puls e Oximeter] Pulse Rate [orthos tatic standing Pul se Oximeter] Respiratory Rate 18 18 18 Blood Pressure 169/86 H 139/81 178/92 H Blood Pressure [Le ft Arm] Blood Pressure [Ri ght Arm] Blood Pressure [Ri ght Upper Arm] Blood Pressure [or thostatic lying Le ft Arm] Blood Pressure [or thostatic sitting Left Arm] Blood Pressure [or thostatic standing Left Arm] Pulse Oximetry 98 93 96 Oxygen Delivery Me thod Room Air Room Air Room Air 06/12/24 04:01 06/12/24 04:31 06/12/24 04:45 Temperature 96.4 F L 96.4 F L 96.4 F L Pulse Rate 63 62 72 Pulse Rate [Pulse Oximeter] Pulse Rate [orthos tatic lying Pulse Oximeter] Pulse Rate [orthos tatic sitting Puls e Oximeter] Pulse Rate [orthos tatic standing Pul se Oximeter] Respiratory Rate 18 18 18 Blood Pressure 139/81 160/94 H 139/84 Blood Pressure [Le ft Arm] Blood Pressure [Ri ght Arm] Blood Pressure [Ri ght Upper Arm] Blood Pressure [or thostatic lying Le ft Arm] Blood Pressure [or thostatic sitting Left Arm] Blood Pressure [or thostatic standing Left Arm] Pulse Oximetry 96 95 93 Oxygen Delivery Tx thod Room Air Room Air Room Air 06/12/24 05:45 06/12/24 07:00 06/12/24 07:00 Temperature 97.4 F L Pulse Rate 66 71 Pulse Rate [Pulse Oximeter] 73 Pulse Rate [orthos tatic lying Pulse Oximeter] Pulse Rate [orthos tatic sitting Puls e Oximeter] Pulse Rate [orthos tatic standing Pul se Oximeter] Respiratory Rate 16 18 Blood Pressure 155/78 H Blood Pressure [Le ft Arm] Blood Pressure [Ri ght Arm] Blood Pressure [Ri ght Upper Arm] Blood Pressure [or thostatic lying Le ft Arm] Blood Pressure [or thostatic sitting Left Arm] Blood Pressure [or thostatic standing Left Arm] Pulse Oximetry 92 Oxygen Delivery Me thod Room Air 06/12/24 07:50 06/12/24 09:19 06/12/24 11:32 Temperature 98.1 F 98.4 F Pulse Rate Pulse Rate [Pulse Oximeter] 73 71 Pulse Rate [orthos tatic lying Pulse Oximeter] 70 Pulse Rate [orthos tatic sitting Puls e Oximeter] 76 Pulse Rate [orthos tatic standing Pul se Oximeter] 80 Respiratory Rate 18 16 Blood Pressure Blood Pressure [Le ft Arm] 135/84 147/74 H Blood Pressure [Ri ght Arm] Blood Pressure [Ri ght Upper Arm] Blood Pressure [or thostatic lying Le ft Arm] 136/74 Blood Pressure [or thostatic sitting Left Arm] 136/83 Blood Pressure [or thostatic standing Left Arm] 98/71 Pulse Oximetry 94 91 Oxygen Delivery Me thod Room Air Room Air Documenting provider has reviewed patient's vital signs: yes Labs Labs: Laboratory Results - last 24 hr 06/11/24 06/11/24 06/11/24 17:06 21:29 21:43 WBC 8.40 RBC 4.12 L Hgb 13.4 L 12.8 L Hct 39.6 MCV 96 MCH 33 MCHC 34 RDW Coeff of Mk 13.9 Plt Count 364 Neut % (Auto) 65.9 Lymph % (Auto) 20.1 [place] % (Auto) 8.2 Eos % (Auto) 4.5 Baso % (Auto) 1.1 Neut # (Auto) 5.53 Lymph # (Auto) 1.69 [place] # (Auto) 0.70 Eos # (Auto) 0.38 Baso # (Auto) 0.09 Abs Immat Gran (auto) 0.02 Imm/Tot Granulo (auto) 0.2 INR 1.05 APTT 25 Sodium 139 Potassium 4.4 Chloride 110 Carbon Dioxide 24 Anion Gap 5 L BUN 21 Creatinine 0.9 Estimated Creat Clear 63.65 Estimated GFR 90 Glucose 94 Lactate 1.7 Calcium 8.8 Magnesium Total Bilirubin 1.0 AST 22 ALT 23 Alkaline Phosphatase 57 C-Reactive Protein < 0.5 L Total Protein 6.0 Albumin 3.5 Stool Occult Blood Blood Type A Positive A Positive Antibody Screen NEGATIVE NEGATIVE Crossmatch (AHG) See Detail 06/11/24 06/12/24 06/12/24 Unknown 01:10 06:24 WBC 15.18 H RBC 3.98 L Hgb 12.0 L 12.9 L Hct 38.1 MCV 96 MCH 32 MCHC 34 RDW Coeff of Mk Plt Count 336 Neut % (Auto) Lymph % (Auto) [place] % (Auto) Eos % (Auto) Baso % (Auto) Neut # (Auto) Lymph # (Auto) [place] # (Auto) Eos # (Auto) Baso # (Auto) Abs Immat Gran (auto) Imm/Tot Granulo (auto) INR APTT Sodium 141 Potassium 4.1 Chloride 109 Carbon Dioxide 27 Anion Gap 5 L BUN 17 Creatinine 1.0 Estimated Creat Clear 63.65 Estimated GFR 79 Glucose 130 H Lactate Calcium 8.4 Magnesium 2.2 Total Bilirubin 1.4 AST 27 ALT 24 Alkaline Phosphatase 54 C-Reactive Protein Total Protein 5.8 L Albumin 3.2 L Stool Occult Blood Positive Blood Type Antibody Screen Crossmatch ([facility]) 06/12/24 06/12/24 08:51 14:32 WBC RBC Hgb 12.1 L 11.4 L Hct MCV MCH MCHC RDW Coeff of Mk Plt Count Neut % (Auto) Lymph % (Auto) [place] % (Auto) Eos % (Auto) Baso % (Auto) Neut # (Auto) Lymph # (Auto) [place] # (Auto) Eos # (Auto) Baso # (Auto) Abs Immat Gran (auto) Imm/Tot Granulo (auto) INR APTT Sodium Potassium Chloride Carbon Dioxide Anion Gap BUN Creatinine Estimated Creat Clear Estimated GFR Glucose Lactate Calcium Magnesium Total Bilirubin AST ALT Alkaline Phosphatase C-Reactive Protein Total Protein Albumin Stool Occult Blood Blood Type Antibody Screen Crossmatch ([facility])
--- NOTE | 2024-06-12 18:53 | PC.NURSE ---
End of shift summary: Pt has been A&O, afebrile and VSS with exception to his positive orthostatic BPs. From laying to sitting he had no change in VS but was symptomatic and then from sitting to standing he dropped from 130s/80s to 90s/70s and was near syncopal. D/t being symptomatic with movement, he is Ax2 up to the [facility]. Doe was inserted this morning with ease, patent & draining clear yellow urine. TELE reads NSR all day. He has no complaints of pain. LR started at 125 mL/hr plus he was given a 500 mL bolus. Pt remained NPO for planned EGD but it was then cancelled d/t pt having a lower GI bleed not an upper so they recommended doing a colonoscopy as well. Pt was switched to clear liquid diet and started on the GoLytely prep this afternoon. He had about 3-4 glasses of it before he had a 150 mL straight bloody stool (dark red blood). With the transfer to the [facility], pt became nauseous & this was his first emesis episode. He had another emesis while in ?bed and drinking the prep. PRN IV Zofran given @ 1645 and PRN Compazine given @ 1830. If pt is still unable to tolerate bowel prep without becoming nauseated, ? ordered PRN Phenergan. Pt is to finish ? of the prep tonight and then ? in the morning ideally 6 hours before the procedure. ?
[2024-06-13] VITALS (10 sets, daily range): BP systolic 133–177; BP diastolic 64–94; PULSE 59–77; RESP 16–18; TEMP 36.7–37.2; O2SAT 91–98
[2024-06-13] MEDS: LACTATED RINGERS 1000 ML 1,000 ML 125 ML IV ×3 (02:39→21:31)
--- NOTE | 2024-06-13 05:28 | PC.NURSE ---
[id number] No nausea/vomiting this shift. only able to drink half of bowel prep before going NPO at midnight, orders read to drink other half 6 hours prior to procedure, time tbd. SBA to BSC, some lightheaded and dizziness noted. young patent and draining. bloody stools.
[2024-06-13] MEDS: PANTOPRAZOLE SODIUM 40 MG INJ IVP ×2 (06:05→19:39)
[2024-06-13 11:05] LABS: Hematocrit 30.4 % (37.0-53.0); Hemoglobin* 10.2 gm/dL (13.5-17.5); Mean Corpuscular HGB Conc 34 gm/dL (32-36); Mean Corpuscular Hemoglobin 32 pg (26-34); Mean Corpuscular Volume 97 fL (80-100); Platelet Count* 324 K/uL (140-440); Red Blood Count 3.15 m/uL (4.30-5.90)
[2024-06-13 11:50] LABS: Slide Review Reflex No
--- NOTE | 2024-06-13 13:38 | P.ANES_ITS ---
Anesthesia Charges Start Date/Time Anesthesia Start Date: 06/13/24 Anesthesia Start Time: 12:53 Stop Date/Time Anesthesia Stop Date: 06/13/24 Anesthesia Stop Time: 13:57 Summary Extremes of Age - Over 70 or under 1: MDA Coding CPT Codes CPT Codes: ANES LWR INTST SCR COLSC - 94977 ([id number]) QK - ADMINISTRATIVE ASSISTANT COORDINATOR 2-4 CNCRNT ANES PROC, QX - BORE MILL OPERATOR SVC W/ MD MED DIRECTION, P2 - PATIENT W/MILD SYST DISEASE Additional Codes: Summary - Extremes of Age - Over 70 or under 1: MDA ([id number])
--- NOTE | 2024-06-13 14:01 | P.ANES_ITS ---
Anesthesia Charges Start Date/Time Anesthesia Start Date: 06/13/24 Anesthesia Start Time: 12:53 Stop Date/Time Anesthesia Stop Date: 06/13/24 Anesthesia Stop Time: 13:57 Coding CPT Codes CPT Codes: NAKITA LWR INTST SCR COLSC - 34894 ([id number]) P2 - PATIENT W/MILD SYST DISEASE, QK - GAMBLING FLOOR SUPERVISOR 2-4 CNCRNT ANES PROC, QX - SLEEPING BAG FILLER SVC W/ MD MED DIRECTION
--- NOTE | 2024-06-13 14:01 | W.ANESCHARGE ---
Anesthesia Charges Start Date/Time Anesthesia Start Date: 06/13/24 Anesthesia Start Time: 12:53 Stop Date/Time Anesthesia Stop Date: 06/13/24 Anesthesia Stop Time: 13:57 Coding CPT Codes CPT Codes: NAKITA LWR INTST SCR COLSC - 01450 ([id number]) P2 - PATIENT W/MILD SYST DISEASE, QK - ASSOCIATE PROFESSOR OF CRIMINAL JUSTICE 2-4 CNCRNT ANES PROC, QX - SHOPPER SVC W/ MD MED DIRECTION
--- NOTE | 2024-06-13 15:13 | PM.IMPN1 ---
Progress Note: A&P Assessment and plan (1) BRBPR (bright red blood per rectum): Problem details: Likely due to diverticular bleeding in the sigmoid. Bleeding is improved and so he is no longer a candidate for interventional radiology at this time. Colonoscopy on 06/13/2024 demonstrated old bleeding but no active bleeding. Conferred with our lead material handler, Dr. Holm, who performed the colonoscopy, who recommended overnight observation with serial hemoglobins, clear liquid diet today and advance to full liquid diet tomorrow if tolerating, with outpatient follow-up if doing well but if not doing well will need to consider possible transfer to a tertiary medical care facility with adequate services for him, including Gastroenterology, Interventional Radiology, General surgery. Status: Acute (2) Acute blood loss anemia: Problem details: Likely due to diverticular bleeding. Received 1 unit of blood transfusion after syncope. Transfuse as needed. Monitor serial hemoglobins. Status: Acute (3) Syncope: Problem details: During the night had a syncopal episode presumably secondary to blood loss and vasovagal symptoms. Received 1 unit blood transfusion and additional IV fluids. Monitor orthostatic blood pressures and pulses. Status: Acute (4) Head trauma: Problem details: Head injury when he had syncope. No neurologic problems. Head CT without bleeding Status: Acute (5) GERD (gastroesophageal reflux disease): Problem details: Omeprazole at home Status: Acute Plan 1. Reviewed impression with patient and 2. Answered their questions 3. They are agreeable to above stated plans and recommendations Time Spent With Patient Total time spent: 45 minutes Subjective Date Seen: 06/13/24 Interval history: 74-year-old male was otherwise healthy admitted through the emergency department on 06/11/2024 with a one-day history of bright red blood per rectum. Was feeling lightheaded and nauseated. No vomiting. No previous history of GI bleeding. No anti-platelet or anticoagulation therapy. Occasionally takes ibuprofen and regularly takes omeprazole for GERD. Last colonoscopy was 11 years ago and was entirely normal. Presented with Hemoccult-positive stool. CT angiogram showed bleeding in the proximal sigmoid. 24 hours ago had a syncopal episode with orthostasis. He has subsequently been quite orthostatic with systolic pressures in the 70s when he stands up. He has received IV fluid bolus with improvement in his symptoms. Hospital day 3. Tolerated the bowel prep last night. Had 2 episodes of bloody stool today. Denies orthostasis. Denies abdominal pain. Subsequently underwent colonoscopy which demonstrated old blood in the colon and no blood in the terminal ileum. It appears as though he had active bleeding from 1 of his sigmoid diverticula. Exam Narrative: Exam Narrative: I examine him in his hospital room before the colonoscopy and subsequently. Appears comfortable no acute distress. From the, articulate, cooperative. Lungs clear to auscultation. Heart tones with regular rhythm, normal S1-S2. Abdomen with active bowel sounds, soft, nontender. No focal motor neurologic deficits. Independent with transfer, station, and gait. No skin lesions including conjunctival or buccal mucosa. Const: Vital Signs, click to edit/add: Vital Signs - 24 hr 06/12/24 19:00 06/12/24 22:16 06/12/24 23:09 Temperature 98.3 F 98.1 F Pulse Rate 73 Pulse Rate [Pulse Oximeter] 66 71 Pulse Rate [orthos tatic lying Pulse Oximeter] Pulse Rate [orthos tatic sitting Puls e Oximeter] Pulse Rate [orthos tatic standing Pul se Oximeter] Respiratory Rate 16 16 Blood Pressure [Le ft Arm] 155/78 H 157/78 H Blood Pressure [or thostatic lying Le ft Arm] Blood Pressure [or thostatic sitting Left Arm] Blood Pressure [or thostatic standing Left Arm] Pulse Oximetry 93 91 Oxygen Delivery Me thod Room Air Room Air 06/13/24 03:00 06/13/24 08:00 06/13/24 08:18 Temperature 98.4 F Pulse Rate 60 Pulse Rate [Pulse Oximeter] 69 71 Pulse Rate [orthos tatic lying Pulse Oximeter] Pulse Rate [orthos tatic sitting Puls e Oximeter] Pulse Rate [orthos tatic standing Pul se Oximeter] Respiratory Rate 16 16 Blood Pressure [Le ft Arm] 133/64 Blood Pressure [or thostatic lying Le ft Arm] Blood Pressure [or thostatic sitting Left Arm] Blood Pressure [or thostatic standing Left Arm] Pulse Oximetry 91 Oxygen Delivery Me thod Room Air 06/13/24 08:18 06/13/24 10:35 06/13/24 10:37 Temperature 98.0 F Pulse Rate Pulse Rate [Pulse Oximeter] 71 Pulse Rate [orthos tatic lying Pulse Oximeter] 65 Pulse Rate [orthos tatic sitting Puls e Oximeter] 67 Pulse Rate [orthos tatic standing Pul se Oximeter] 72 Respiratory Rate 18 Blood Pressure [Le ft Arm] 152/87 H 177/90 H Blood Pressure [or thostatic lying Le ft Arm] 165/94 H Blood Pressure [or thostatic sitting Left Arm] 176/87 H Blood Pressure [or thostatic standing Left Arm] 164/86 H Pulse Oximetry 98 Oxygen Delivery Me thod Room Air 06/13/24 11:00 Temperature Pulse Rate Pulse Rate [Pulse Oximeter] 67 Pulse Rate [orthos tatic lying Pulse Oximeter] Pulse Rate [orthos tatic sitting Puls e Oximeter] Pulse Rate [orthos tatic standing Pul se Oximeter] Respiratory Rate 18 Blood Pressure [Le ft Arm] 176/87 H Blood Pressure [or thostatic lying Le ft Arm] Blood Pressure [or thostatic sitting Left Arm] Blood Pressure [or thostatic standing Left Arm] Pulse Oximetry Oxygen Delivery Me thod Labs Labs: Laboratory Results - last 24 hr 06/13/24 10:50 WBC 9.30 RBC 3.15 L Hgb 10.2 L Hct 30.4 L MCV 97 MCH 32 MCHC 34 Plt Count 324
[2024-06-13 16:46] LABS: Hemoglobin* 10.6 gm/dL (13.5-17.5)
--- NOTE | 2024-06-13 18:41 | PC.NURSE ---
Nursing Care Hours: [id number] Pt alert and oriented, calm and cooperative. No c/o pain or nausea. Completed bowel prep, resulting in large quantities of liquid blood BM. No reports of dizziness or lightheadedness during ambulation but did report feeling shaky and cold. Tele showing NSR. VSS post procedure. young dc'd, cath tip intact. LR infusing. Tolerating clear liquid diet. No BM post procedure.
[2024-06-13 19:39] LABS: Hemoglobin* 9.1 gm/dL (13.5-17.5)
[2024-06-13] MEDS: SODIUM CHLORIDE 0.9 % (FLUSH) 10 ML SYRINGE 5 ML IVF (19:40)
[2024-06-14] VITALS (17 sets, daily range): BP systolic 147–180; BP diastolic 66–94; PULSE 64–75; RESP 16–18; TEMP 36.6–37.1; O2SAT 92–98
[2024-06-14 00:40] LABS: Hemoglobin* 8.8 gm/dL (13.5-17.5)
[2024-06-14] MEDS: LACTATED RINGERS 1000 ML 1,000 ML 125 ML IV (05:22)
[2024-06-14] MEDS: SODIUM CHLORIDE 0.9 % (FLUSH) 10 ML SYRINGE 5 ML IVF ×2 (06:36→19:13)
[2024-06-14] MEDS: PANTOPRAZOLE SODIUM 40 MG INJ IVP ×2 (06:36→19:13)
[2024-06-14 07:05] LABS: Hematocrit 25.7 % (37.0-53.0); Hemoglobin* 8.8 gm/dL (13.5-17.5); Mean Corpuscular HGB Conc 34 gm/dL (32-36); Mean Corpuscular Hemoglobin 33 pg (26-34); Mean Corpuscular Volume 96 fL (80-100); Platelet Count* 301 K/uL (140-440); Red Blood Count 2.67 m/uL (4.30-5.90); White Blood Count* 9.81 K/uL (4.50-11.00)
[2024-06-14 07:06] LABS: Slide Review Reflex No
[2024-06-14 07:15] LABS: Chloride* 109 mmol/L (96-114); Potassium* 3.5 mmol/L (3.6-5.1); Sodium* 139 mmol/L (135-149)
[2024-06-14 07:18] LABS: Anion Gap 2 mEq/L (7-15); Blood Urea Nitrogen* 9 mg/dL (7-30); Carbon Dioxide* 28 mmol/L (20-32); Est. Creatinine Clearance* 63.65; Estimated Glomerular Filt Rate 79 ml/min; Glucose* 94 mg/dL (60-115)
[2024-06-14 07:19] LABS: Calcium* 8.1 mg/dL (8.4-10.6)
--- NOTE | 2024-06-14 07:26 | PC.NURSE ---
Addendum entered by Norma England 06/14/24 07:35: Pt reported scant blood on toilet paper when wiping, no blood noted water of toilet. Original Note: Pt is alert and oriented x3. Afebrile. Pt denies pain, chest pain, SOB, and N/V. No stools overnight. Pt is passing gas and has active bowel sounds. Pt is up SBA, voiding and tolerating a regular diet. Pt reported not feeling as though he was voiding enough, bladder scan for 647ml. Pt was straight catheterized for 800ml, tolerated well.
[2024-06-14 16:27] LABS: Hemoglobin* 10.3 gm/dL (13.5-17.5)
--- NOTE | 2024-06-14 17:04 | PM.IMPN1 ---
Progress Note: A&P Assessment and plan (1) BRBPR (bright red blood per rectum): Problem details: Likely due to diverticular bleeding in the sigmoid. Bleeding is improved and so he is no longer a candidate for interventional radiology at this time. Colonoscopy on 06/13/2024 demonstrated old bleeding but no active bleeding. Conferred with our security advisor, Dr. Holm, who performed the colonoscopy, who recommended overnight observation with serial hemoglobins, clear liquid diet today and advance to full liquid diet tomorrow if tolerating, with outpatient follow-up if doing well but if not doing well will need to consider possible transfer to a tertiary medical care facility with adequate services for him, including Gastroenterology, Interventional Radiology, General surgery. Status: Acute (2) Acute blood loss anemia: Problem details: Likely due to diverticular bleeding. Received 1 unit of blood transfusion after syncope. Transfuse as needed. Monitor serial hemoglobins. Status: Acute (3) Syncope: Problem details: During the night had a syncopal episode presumably secondary to blood loss and vasovagal symptoms. Received 1 unit blood transfusion and additional IV fluids. Monitor orthostatic blood pressures and pulses. Status: Acute (4) Head trauma: Problem details: Head injury when he had syncope. No neurologic problems. Head CT without bleeding Status: Acute (5) GERD (gastroesophageal reflux disease): Problem details: Omeprazole at home Status: Acute (6) Diverticulosis: Status: Acute (7) BPH with obstruction/lower urinary tract symptoms: Problem details: -post-void residual volumes in hospital of 900 ml urine -place urethral catheter, teach cath cares, and arrange for outpatient urology consultation in 2-3 weeks -start Tamsulosin 0.4 mg once daily and Dutasteride 0.5 mg once daily Status: Acute Plan 1. Reviewed impression and recommendations with patient and son 2. Answered their questions their satisfaction 3. They agree with above stated plans and recommendations Time Spent With Patient Total time spent: 60 minutes Subjective Date Seen: 06/14/24 Interval history: ?74-year-old male was otherwise healthy admitted through the emergency department on 06/11/2024 with a one-day history of bright red blood per rectum. ?Was feeling lightheaded and nauseated. No vomiting. No previous history of GI bleeding. No anti-platelet or anticoagulation therapy. Occasionally takes ibuprofen and regularly takes omeprazole for GERD. Last colonoscopy was 11 years ago and was entirely normal. ?Presented with Hemoccult-positive stool. CT angiogram showed bleeding in the proximal sigmoid. 24 hours ago had a syncopal episode with orthostasis. He has subsequently been quite orthostatic with systolic pressures in the 70s when he stands up. He has received IV fluid bolus with improvement in his symptoms. ?Hospital day 3. Tolerated the bowel prep last night. Had 2 episodes of bloody stool today. Denies orthostasis. Denies abdominal pain. Subsequently underwent colonoscopy which demonstrated old blood in the colon and no blood in the terminal ileum. It appears as though he had active bleeding from 1 of his sigmoid diverticula. Hospital day 4. 06/14/2024 Hemoglobin dropped to 8.8 this morning. No additional overt bright red blood per rectum. Denies orthostasis. Transfuse patient with 1 unit of packed red blood cells and hemoglobin increased to 10.3. Patient finally indicated that he was having urinary retention. We checked his postvoid residual bladder volume and measured 900 mL. He then acknowledge that for months to possibly even years he has been having difficulties completely emptying his bladder with slower urinary stream and increased frequency. I reviewed with him additional diagnostic and interventional treatment options. In the end we decided to not discharge the patient home today as we had originally intended. Instead we placed a urethral catheter to gravity, and will start him on tamsulosin 0.4 mg once daily as well as dutasteride 0.5 mg once daily. He will have follow-up with a urologist in 2-3 weeks for additional considerations including the possibility of removing the catheter versus additional interventional efforts. Will reassess hemoglobin in the morning as well. Exam Narrative: Exam Narrative: I examined in his hospital room. Appears comfortable no acute distress. Lungs are clear to auscultation. Heart tones with regular rhythm. Abdomen is obese active bowel sounds, soft. Suprapubic abdomen appears full as well. Suprapubic abdominal fullness is decrease with placement of urethral catheter. No edema. Independent with transfer, station, gait. No focal motor neurologic deficits. Const: Vital Signs, click to edit/add: Vital Signs - 24 hr 06/13/24 19:35 06/13/24 22:00 06/13/24 23:00 Temperature 98.9 F 98.3 F Pulse Rate 77 Pulse Rate [Pulse Oximeter] 72 73 Respiratory Rate 16 16 Blood Pressure Blood Pressure [Le ft Arm] 163/71 H Blood Pressure [Ri ght Arm] 135/75 160/73 H Pulse Oximetry 91 92 Oxygen Delivery Me thod Room Air Room Air 06/14/24 03:40 06/14/24 08:16 06/14/24 08:19 Temperature 98.0 F 97.8 F Pulse Rate 68 Pulse Rate [Pulse Oximeter] 73 69 Respiratory Rate 16 16 Blood Pressure Blood Pressure [Le ft Arm] 158/88 H Blood Pressure [Ri ght Arm] 158/77 H Pulse Oximetry 93 92 Oxygen Delivery Me thod Room Air Room Air 06/14/24 11:00 06/14/24 12:40 06/14/24 12:56 Temperature 98 F 98.1 F 98.0 F Pulse Rate 69 71 Pulse Rate [Pulse Oximeter] 75 Respiratory Rate 18 16 16 Blood Pressure 178/74 H 159/77 H Blood Pressure [Le ft Arm] 163/86 H Blood Pressure [Ri ght Arm] Pulse Oximetry 92 94 96 Oxygen Delivery Me thod Room Air Room Air Room Air 06/14/24 13:00 06/14/24 13:30 06/14/24 14:00 Temperature 97.9 F 98.0 F 98.1 F Pulse Rate 68 72 66 Pulse Rate [Pulse Oximeter] Respiratory Rate 16 16 16 Blood Pressure 161/69 H 151/70 H 147/66 H Blood Pressure [Le ft Arm] Blood Pressure [Ri ght Arm] Pulse Oximetry 98 96 97 Oxygen Delivery Me thod Room Air Room Air Room Air 06/14/24 14:30 06/14/24 15:00 06/14/24 15:26 Temperature 98.6 F 98.4 F Pulse Rate 69 68 69 Pulse Rate [Pulse Oximeter] Respiratory Rate 16 16 Blood Pressure 163/81 H 159/82 H Blood Pressure [Le ft Arm] Blood Pressure [Ri ght Arm] Pulse Oximetry 95 96 Oxygen Delivery Me thod Room Air Room Air 06/14/24 15:30 06/14/24 15:30 06/14/24 16:30 Temperature 98.5 F 98.5 F 98.5 F Pulse Rate 64 66 Pulse Rate [Pulse Oximeter] 64 Respiratory Rate 16 16 16 Blood Pressure 180/94 H 166/92 H Blood Pressure [Le ft Arm] 180/94 H Blood Pressure [Ri ght Arm] Pulse Oximetry 98 98 97 Oxygen Delivery Me thod Room Air Room Air Room Air Labs Labs: Laboratory Results - last 24 hr 06/11/24 06/13/24 06/13/24 21:29 00:34 19:35 WBC RBC Hgb 8.8 L 9.1 L Hct MCV MCH MCHC Plt Count Sodium Potassium Chloride Carbon Dioxide Anion Gap BUN Creatinine Estimated Creat Clear Estimated GFR Glucose Calcium Blood Type A Positive Antibody Screen NEGATIVE Crossmatch ([facility]) See Detail 06/14/24 06/14/24 06:36 16:23 WBC 9.81 RBC 2.67 L Hgb 8.8 L 10.3 L Hct 25.7 L MCV 96 MCH 33 MCHC 34 Plt Count 301 Sodium 139 Potassium 3.5 L Chloride 109 Carbon Dioxide 28 Anion Gap 2 L BUN 9 Creatinine 1.0 Estimated Creat Clear 63.65 Estimated GFR 79 Glucose 94 Calcium 8.1 L Blood Type Antibody Screen Crossmatch ([facility])
[2024-06-14] MEDS: TAMSULOSIN HCL 0.4 MG CAPSULE PO (20:38)
[2024-06-15 02:10] VITALS: BP 159/85; PULSE 74; RESP 18; TEMP 36.8; O2SAT 90
[2024-06-15] MEDS: ACETAMINOPHEN 325 MG TABLET 650 MG PO (06:22)
[2024-06-15] MEDS: SODIUM CHLORIDE 0.9 % (FLUSH) 10 ML SYRINGE 5 ML IVF ×2 (06:23→08:10)
--- NOTE | 2024-06-15 06:53 | PC.NURSE ---
Pt is alert and oriented x3. Afebrile. No stools overnight.?Pt reports 4/10 back pain, managed with PRN Tylenol. Pt is passing gas and has active bowel sounds. Pt is up SBA, voiding and tolerating a full liquid diet. Pt was bladder scanned around 2320 for 425ml post-void, MD Gaffney updated, indwelling catheter placed, pt tolerated well. ?
[2024-06-15 07:00] VITALS: BP 150/75; PULSE 67; PULSE 72; RESP 18; TEMP 36.8; O2SAT 91
[2024-06-15 07:33] LABS: Hemoglobin* 9.8 gm/dL (13.5-17.5)
[2024-06-15] MEDS: PANTOPRAZOLE SODIUM 40 MG INJ IVP (08:09)
--- NOTE | 2024-06-15 10:47 | PC.NURSE ---
Discharge-- Very pleasant and cooperative, alert and oriented patient discharged to home via wheelchair with son. VSS and pt is afebrile. SPO2 maintained >90% on RA. He c/o some mild lower back pain this morning, was given Tylenol and initially patient stated relief, but did c/o some continuing back pain just prior to discharge. Pt was advised for self treatment. LS CTA. Telemetry showed NSR. Doe patent and draining adequate amounts of clear, yellow urine. Bag was changed to a leg bag and catheter care education was provided. Discharge education was provided including diagnosis info, symptoms to report, diet, medications and follow up plan. No further questions asked and SL was removed with tip intact.
--- NOTE | 2024-06-15 16:11 | PM.DS1 ---
DS: Providers Provider Date Seen: 06/15/24 Date of admission: 06/12/24 08:26 Primary care physician: Yousif Dalton MD Admitting Clinician: Kassidy Gaffney MD Attending Physician on discharge: Josiah Ocampo MD Date of Discharge: 06/15/24 DS: Diagnosis Discharge Diagnosis (1) BRBPR (bright red blood per rectum): Status: Acute Problem details: Likely due to diverticular bleeding in the sigmoid. Bleeding is improved and so he is no longer a candidate for interventional radiology at this time. Colonoscopy on 06/13/2024 demonstrated old bleeding likely from diverticula in sigmoid colon but no active bleeding. Conferred with our forensic structural engineer, Dr. Holm, who performed the colonoscopy, who recommended overnight observation with serial hemoglobins, clear liquid diet today and advance to full liquid diet tomorrow if tolerating, with outpatient follow-up if doing well but if not doing well will need to consider possible transfer to a tertiary medical care facility with adequate services for him, including Gastroenterology, Interventional Radiology, General surgery. (2) Acute blood loss anemia: Status: Acute Problem details: Likely due to diverticular bleeding. Received 1 unit of blood transfusion after syncope. Transfuse as needed. Monitor serial hemoglobins. Hemoglobin level on 06/15/2024, day of discharge from the hospital, was 9.8. Received a total of 2 units of packed red blood cells while in the hospital. (3) Diverticulosis: Status: Acute Problem details: -over time would benefit from high-fiber diet. -consider referral for assessment of more definitive intervention if has recurrent diverticular bleeding (4) Syncope: Status: Acute Problem details: During the night had a syncopal episode presumably secondary to blood loss and vasovagal symptoms. Received 1 unit blood transfusion and additional IV fluids. Monitor orthostatic blood pressures and pulses. (5) Head trauma: Status: Acute Problem details: Head injury when he had syncope. No neurologic problems. Head CT without bleeding (6) Excessive use of nonsteroidal anti-inflammatory drugs (NSAIDs): Status: Acute Problem details: -06/11/2024, indicates he has been consuming OTC ibuprofen 4-6 times weekly for pain management -in hospital we change to acetaminophen scheduled and recommended he have follow up with his primary coronary care unit nurse (7) GERD (gastroesophageal reflux disease): Status: Acute Problem details: Omeprazole at home (8) GERARDO (obstructive sleep apnea): Status: Acute Problem details: On CPAP (9) BPH with obstruction/lower urinary tract symptoms: Status: Acute Problem details: -post-void residual volumes in hospital of 900 ml urine -place urethral catheter, teach cath cares, and arrange for outpatient urology consultation in 2-3 weeks -start Tamsulosin 0.4 mg once daily and Dutasteride 0.5 mg once daily DS: Summary Hospital Course Hospital Course: ?74-year-old male was otherwise healthy admitted through the emergency department on 06/11/2024 with a one-day history of bright red blood per rectum. ?Was feeling lightheaded and nauseated. No vomiting. No previous history of GI bleeding. No anti-platelet or anticoagulation therapy. Occasionally takes ibuprofen and regularly takes omeprazole for GERD. Last colonoscopy was 11 years ago and was entirely normal. ?Presented with Hemoccult-positive stool. CT angiogram showed bleeding in the proximal sigmoid. 24 hours ago had a syncopal episode with orthostasis. He has subsequently been quite orthostatic with systolic pressures in the 70s when he stands up. He has received IV fluid bolus with improvement in his symptoms. Had no abdominal pain throughout the hospitalization. Eventually did diverticular bleeding seemed to resolve. Colonoscopy performed on 06/13/2024 did not demonstrate any active bleeding site but did demonstrate old blood particularly in the sigmoid. On 06/14/2024 patient indicated that he was having urinary retention. We checked his postvoid residual bladder volume and measured 900 mL. He then acknowledge that for months to possibly even years he has been having difficulties completely emptying his bladder with slower urinary stream and increased frequency. I reviewed with him additional diagnostic and interventional treatment options. In the end we decided to not discharge the patient home today as we had originally intended. Instead we placed a urethral catheter to gravity, and will start him on tamsulosin 0.4 mg once daily as well as dutasteride 0.5 mg once daily. He will have follow-up with a urologist in 2-3 weeks for additional considerations including the possibility of removing the catheter versus additional interventional efforts. Status at Discharge Functional status at discharge: independent ambulation Overall status at discharge: patient is progressing back to baseline Time Spent with Patient Time attestation: Total time spent providing and/or coordinating discharge services: Time spent: Less than 30 minutes Exam Narrative: Exam Narrative: I examined in his hospital room. Appears comfortable no acute distress. Lungs are clear to auscultation. Heart tones with regular rhythm. Abdomen is obese active bowel sounds, soft. Suprapubic abdominal fullness is decreased with placement of urethral catheter. No edema. Independent with transfer, station, gait. No focal motor neurologic deficits. Const: Vital Signs, click to edit/add: Vital Signs - 24 hr 06/14/24 16:30 06/14/24 19:19 06/14/24 22:40 Temperature 98.5 F 98.5 F Pulse Rate 66 67 Pulse Rate [Pulse Oximeter] 65 Respiratory Rate 16 16 Blood Pressure 166/92 H Blood Pressure [Le ft Arm] 171/78 H Pulse Oximetry 97 93 Oxygen Delivery Me thod Room Air Room Air 06/14/24 23:31 06/15/24 02:10 06/15/24 07:00 Temperature 98.7 F 98.2 F 98.2 F Pulse Rate Pulse Rate [Pulse Oximeter] 74 74 72 Respiratory Rate 18 18 18 Blood Pressure Blood Pressure [Le ft Arm] 166/80 H 159/85 H 150/75 H Pulse Oximetry 92 90 91 Oxygen Delivery Me thod Room Air Room Air Room Air 06/15/24 07:00 06/15/24 07:00 Temperature Pulse Rate 67 Pulse Rate [Pulse Oximeter] 72 Respiratory Rate 18 Blood Pressure Blood Pressure [Le ft Arm] Pulse Oximetry Oxygen Delivery Me thod DS: Data Data Completed and Pending Labs on day of discharge: Labs from last 24 hours 06/15/24 06/14/24 06/11/24 07:28 16:23 21:29 Hgb 9.8 L 10.3 L Crossmatch (AHG) See Detail Imaging CT scan - head: Attestation: I have reviewed the pertinent imaging results. Radiologist's impression: 1. Left convexity scalp contusion, no other acute traumatic abnormality appreciated. 2. Question acute on chronic right maxillary sinusitis. CT scan - abdomen and pelvis: Radiologist's impression: COMPARISON: None. FINDINGS: Lower chest: Scattered atelectasis. Liver: Unremarkable. Normal in size and attenuation. No suspicious masses. Gallbladder and bile ducts: Unremarkable. No stones or inflammation. No biliary dilatation. Pancreas: Unremarkable. No mass or inflammation. Spleen: Unremarkable. Normal in size. No masses. Adrenal glands: Tiny right adrenal nodule likely adenoma. Kidneys: Exophytic left renal cyst. Additional tiny cortical hypodensities, too small to characterize. No suspicious masses, stones, or hydronephrosis. GI tract: Sigmoid colonic diverticulosis. Focal extravasation of contrast during the arterial phase with venous pooling seen in the proximal sigmoid colon (series 5/image 245, series 6/image 62). No diverticulitis. No bowel obstruction. Normal appendix. Vasculature: Abdominal aorta is normal in caliber. Mesenteric arteries are patent. Lymph nodes: No lymphadenopathy. Peritoneum/Abdominal Wall: Unremarkable. No sign of mass or infiltration. No free air or significant free fluid. Pelvis: Prostatomegaly. Bones: Unremarkable for age. IMPRESSION: Acute GI bleed arising from the proximal sigmoid colon, likely from active diverticular hemorrhage. Discharge Plan Discharge Disposition: Home, Self-Care Date of Admission: 06/12/24 08:26 Attending Provider on Discharge: Josiah Ocampo Consulting Providers: Jones Holm Primary Care Provider: Yousif Dalton Condition: Improved Anticipated Discharge Date/Time: 06/15/24 11:00 Discharge Medications: New acetaminophen 325 mg tablet 650 mg PO QID PRN (Reason: pain) Qty: 100 0RF ferrous sulfate 325 mg (65 mg iron) tablet 325 mg PO BID Qty: 60 0RF tamsulosin 0.4 mg Capsule 0.4 mg PO HS 30 Days Qty: 30 1RF dutasteride [Avodart] 0.5 mg Capsule 0.5 mg PO DAILY 30 Days Qty: 30 1RF Continued omeprazole 20 mg capsule,delayed release(DR/EC) 20 mg PO DAILY Discharge Orders: Discharge Order (Routine); Ordered 06/15/24 Ordered By: Josiah Ocampo Patient Education: Iron Supplements (By mouth), Acetaminophen (By mouth), Tamsulosin (By mouth), Dutasteride (By mouth), Diverticulosis (DC), Enlarged Prostate (BPH) (DC), High Fiber Diet (DC), Low Fiber Diet (DC), Iron Rich Diet (DC), Doe Catheter Placement and Care (DC), Iron Deficiency Anemia (GEN) Additional Instructions: 1. Follow-up with primary care physician in 3-4 days with previsit hemoglobin level regarding acute blood loss anemia and assessment and treatment of pain, for which you have been using ibuprofen, and urinary outlet obstruction 2. Do not consume ibuprofen or other non-steroidal anti-inflammatory drug until your primary coronary care unit nurse indicates you can do so again in the future 3. Consider specialist referral for further assessment and treatment of diverticular bleed, particularly if recurrent 4. Warehouse Lead in next 1-2 weeks, regarding eventually initiating a high fiber diet in next 3-4 weeks 5. If you have recurrent rectal hemorrhage, present to the nearest tertiary medical facility for additional disease directed management and interventional efforts 6. Urethral catheter use continuously until urology consultation 7. Urology consultation in 2-3 weeks, regarding urinary outlet obstruction and urethral catheter Activity Level: No Restrictions Discharge Diet: Regular, High Fiber, Low Fiber and Full Liquid Diet Detail: 1. Soft, low fiber diet for 2-3 days, then increase to regular, low fiber diet for 2 weeks, then regular diet for 2 weeks, then gradually transition to high fiber diet (20-40 grams fiber daily) over ensuing 2-4 weeks. Follow Up Appointments: Yousif Dalton MD [Primary Care Provider] - 06/16/24 9:00 am ([facility] for follow-up, hemoglobin check and Urology consultation. ) Forms: [employer] Info Instructions
== END 2024-06-15 10:20 | disposition home or self-care (01) | DRG 378 ==
LOC: ED 19:36 → MEDSURG 19:55
PROVIDERS: Family Medicine; Internal Medicine; Admitting Provider Student in an Organized Health Care Education/Training Program; Emergency Provider Family Medicine; PCP Family Medicine; Visit Provider Student in an Organized Health Care Education/Training Program
DX: K62.5 Hemorrhage of anus and rectum (principal); D62 Acute posthemorrhagic anemia; K21.9 Gastro-esophageal reflux disease without esophagitis; G47.33 Obstructive sleep apnea (adult) (pediatric); Z99.89 Dependence on other enabling machines and devices; Z79.1 Long term (current) use of non-steroidal anti-inflammatories (NSAID); R55 Syncope and collapse; S09.90XA Unspecified injury of head, initial encounter; K57.31 Diverticulosis of large intestine without perforation or abscess with bleeding; N40.1 Benign prostatic hyperplasia with lower urinary tract symptoms; R33.8 Other retention of urine
CPT/HCPCS: 00812; 36415; 36430; 45378; 51701; 51702; 51798; 70450; 74174; 80048; 80053; 82270; 83605; 83735; 85018; 85025; 85027; 85610; 85730; 86140; 86850; 86900; 86901; 86922; 94761; 99100; 99284; 99285; G0378; A9270; J0780; J2405; J2470; J2704; J7030; J7120; P9016; Q9967

== ENCOUNTER 2024-06-19 09:50 | Outpatient (CLI) | payer MEDICARE, BC, SELFPAY | END 2024-06-19 09:51 | disposition home or self-care (01) | LOC: NFLDREF 06-23 03:30 | PROVIDERS: PCP Family Medicine; Referring Provider Family Medicine; Visit Provider Family Medicine | DX: Z12.5 Encounter for screening for malignant neoplasm of prostate (principal); R55 Syncope and collapse; D62 Acute posthemorrhagic anemia | CPT/HCPCS: 85025; G0103 ==

== ENCOUNTER 2024-06-28 21:44 | Emergency (ER) | payer MEDICARE, BC, SELFPAY ==
--- OUTSIDE RECORDS SUMMARY | 2024-06-28 21:46 | XMS_ITS | Clinical Summary ---
Author Organization [facility] Address [place], [place] [address] Care Team Providers Care Business Excellence Manager Name Role Phone Neil Parker MD Primary Care Provider [phone] Allergies No known active allergies Medications PRILOSEC 20 MG CAP take 1 capsule (20 mg) by oral route once daily before a meal 0 08/05/2008 Active fluticasone, 50 mcg per actuation, nasal (FLONASE) 50 mcg/Actuation nasal sprayIndication s:Nasal congestion Inhale 2 Sprays into both nostrils once daily. Vona dose in each nostril. 1 Bottle 12 [...] on file Legal Sex Male 5:42 AM [employer] Gender Identity Not on file Sexual Orientation [...] 175.3 cm (5' 9) 07/26/2009 9:27 AM [employer] Body Mass Index 30.24 07/26/2009 9:27 AM [employer] Plan of Treatment Health Maintenance Due Date [...] Comments LIPID PANEL Routine 08/05/2008 10:41 AM [employer] Lipid Screening from Last 3 Months or Most Recently Relevant to Health Maintenance Results * (ABNORMAL) LIPID PANEL (08/05/2008 10:41 AM [employer]) CHOLESTEROL,TOTAL 189 110 - 199 mg/dL [facility] TRIGLYCERIDES 164(H) <150 mg/dL [facility] HDL CHOLESTEROL 36(L) >40 mg/dL [facility] CHOL/HDL RATIO 5.25(H) <4.51 [facility] LDL CHOLESTEROL 120 <131 mg/dL [facility] PATIENT STATUS Fasting [facility] Blood specimen (specimen) BLOOD SPECIMEN / Unknown 08/05/2008 10:41 AM [employer] 08/05/2008 10:34 AM [employer] Chon Guo MD CHEMISTRY Final Result [facility] [address] [place] [address] from Last 3 Months or Most Recently Relevant to Health Maintenance Insurance [facility] [employer] Care Teams Business Excellence Manager Relationship Specialty Start Date End Date Neil Parker MD PCP - General Family Practice 06/05/13
--- OUTSIDE RECORDS SUMMARY | 2024-06-28 21:46 | XMS_ITS | Data Portability ---
Author Organization [place] - [employer], [employer] - [facility] Address [address] [place] [address] Assessment Encounter Date Assessment Date Assessment LastModified by Organization Details LastModified Time 06/16/2024 06/16/2024 ASSESSMENT: Patient is a good candidate for conservative care and the prognosis is for a favorable outcome that achieves the patients' goals. We discussed etiology, activity modifications, home care, and other treatment options. Initially, it is recommended that the patient receive in-office treatment 1 times per week for 8 weeks at which time a re-evaluation will be performed to determine an appropriate change in plan. Initially, treatment will focus on joint manipulation to restore range of motion and reduce pain. We will slowly progress to therapeutic exercises and activities to improve function, strength, and stability may also be used as warranted. If the patient is not responding as expected, more invasive procedures will be discussed along with a referral. All considerations above were discussed with the patient and questions answered to satisfaction. If the patient should have any additional questions, or should the condition evolve or worsen, the patient should not hesitate to contact our office. ASSESSMENT: Patient is a good candidate for conservative care and the prognosis is for a favorable outcome that achieves the patients' goals. We discussed etiology, activity modifications, home care, and other treatment options. Initially, it is recommended that the patient receive in-office treatment 1 times per week for 8 weeks at which time a re-evaluation will be performed to determine an appropriate change in plan. Initially, treatment will focus on joint manipulation to restore range of motion and reduce pain. We will slowly progress to therapeutic exercises and activities to improve function, strength, and stability may also be used as warranted. If the patient is not responding as expected, more invasive procedures will be discussed along with a referral. All considerations above were discussed with the patient and questions answered to satisfaction. If the patient should have any additional questions, or should the condition evolve or worsen, the patient should not hesitate to contact our office. ecram Not available 06/16/2024 12:44:11 06/23/2024 06/23/2024 ASSESSMENT: Patient is a good candidate for conservative care and the prognosis is for a favorable outcome that achieves the patients' goals. We discussed etiology, activity modifications, home care, and other treatment options. Initially, it is recommended that the patient receive in-office treatment 1 times per week for 8 weeks at which time a re-evaluation will be performed to determine an appropriate change in plan. Initially, treatment will focus on joint manipulation to restore range of motion and reduce pain. We will slowly progress to therapeutic exercises and activities to improve function, strength, and stability may also be used as warranted. If the patient is not responding as expected, more invasive procedures will be discussed along with a referral. All considerations above were discussed with the patient and questions answered to satisfaction. If the patient should have any additional questions, or should the condition evolve or worsen, the patient should not hesitate to contact our office. ASSESSMENT: Patient is a good candidate for conservative care and the prognosis is for a favorable outcome that achieves the patients' goals. We discussed etiology, activity modifications, home care, and other treatment options. Initially, it is recommended that the patient receive in-office treatment 1 times per week for 8 weeks at which time a re-evaluation will be performed to determine an appropriate change in plan. Initially, treatment will focus on joint manipulation to restore range of motion and reduce pain. We will slowly progress to therapeutic exercises and activities to improve function, strength, and stability may also be used as warranted. If the patient is not responding as expected, more invasive procedures will be discussed along with a referral. All considerations above were discussed with the patient and questions answered to satisfaction. If the patient should have any additional questions, or should the condition evolve or worsen, the patient should not hesitate to contact our office. ecram Not available 06/23/2024 10:23:57 Plan of Treatment Reminders Order Date Submit Date Provider Last Modified By Organization Details Last Modified Time Details Appointments None record ed. Lab None record ed. Referral None record ed. Procedures None record ed. Surgeries None record ed. Imaging None record ed. Medication Orders None record ed. Patient TargetsNo targets recorded. Patient InstructionsNo instructions recorded. Reason for Referral None Reported. Problems Name Problem SNOMED Code Status Onset Date Resolution Date Notes Provider Name and Address Organization Details Recorded Time Thoracic segmental dysfunction 421530666 Active 2024 Juan Antonio Kumar Annirandolph BEBE [address], [place], [address], [facility] 12:44:10 Low back pain 345983064 Active 2024 Juan Antonio Kumar Annirandolph BEBE [address], [place], [address], [facility] 12:44:10 Lumbar segmental dysfunction 575003337 Active 2024 Juan Antonio Kumar Annirandolph BEBE [address], [place], [address], [facility] 12:44:11 Somatic dysfunction of sacral spine 094478321 Active 2024 Juan Antonio José HuttonrandolphBEBE [address], [place], [address], [facility] 12:44:11 Neck pain 68642337 Active 2024 Juan Antonio Kumar Annirandolph BEBE [address], [place], [address], [facility] 12:44:12 Cervical segmental dysfunction 631505217 Active 2024 Juan Antonio Kumar Annirandolph BEBE [address], [place], [address], [facility] 12:44:12 Problem Notes None recorded. Procedures Surgical History Date Name Laterality Status Provider Name and Address Organization Details Recorded Time 41839: Spinal manipulation , 3 to 4 regions completed Juan Antonio Styles DC [address], [place], [address], [facility] 06/23/2024 10:23:57 83126: Spinal manipulation , 3 to 4 regions completed Juan Antonio Styles DC [address], [place], [address] [place] [address] 06/16/2024 12:46:17 Imaging Results None recorded. Procedure Notes None recorded. Medical Equipment None Reported. Vitals None Recorded Social History None recorded. Functional Status None recorded. Mental Status None recorded. Family History Nothing Reported. Medical History No medical history recorded. Past Encounters Encounter ID Performer Location Encounter Start Date Encounter Closed Date Diagnosis/Indication Diagnosis SNOMED-CT Code Diagnosis ICD10 Code Diagnosis Note [id number] Juan Antonio Styles DC [facility] & [address] [place] [address] 06/16/2024 11:45:55 06/16/2024 13:02:44 Lumbar segmental dysfunction 053086328 M99.03 Low back pain 069296657 M54.50 Somatic dy sfunction of sacral spine 248437332 M99.04 Thoracic s egmental dysfunction 907533886 M99.02 Cervical s egmental dysfunction 940256313 M99.01 Neck pain 32800515 M54.2 [id number] [address] [place] [address] 06/23/2024 10:15:30 06/23/2024 10:29:33 Lumbar segmental dysfunction 105552574 M99.03 Low back pain 272374111 M54.50 Somatic dy sfunction of sacral spine 239974454 M99.04 Thoracic s egmental dysfunction 506807557 M99.02 Cervical s egmental dysfunction 334017099 M99.01 Neck pain 05030087 M54.2 Health Concerns Section Related Observation LastModified by Organization Detai ls LastModified Time None Recorded Concern Status LastModified by Organization Details LastModified Time None Recorded Advance Directives Directive None Recorded Payers Encounter Date Sequence Insurance Name Policy Number Policy Black Covered Member ID Black Member ID Guarantor Name 06/16/2024 2 [place] [id number] Tim Tam [id number] Karlo Acra 06/16/2024 1 [place] [employer] Tim L Yonatan [id number] Karlo Yonatan 06/23/2024 2 [place] [id number] Tim Tam [id number] Karlo Yonatan 06/23/2024 1 [place] [employer] [facility] Tim Tam [id number] Karlo Tam Notes Date Note Type Note Provider Name and Address Organization Details Recorded Time 06/16/2024 text/html HPI - Cervical SpineReported bypatient.Location: bilateral Quality:aching Severity:moderate Duration:2 weeks Timing:gradual Context:atraumatic Alleviating Factors:nothing helps Aggravating Factors:bending; twisting/turning Associated Symptoms:no numbness/tinglingHP I - Lumbar SpineReported bypatient.Location: bilateral; With radiation to knee Quality:aching Severity:moderate Timing:recurrent Context:bending; lifting; twisting Aggravating Factors:lifting; carrying; twisting; bending/squatting Alleviating Factors:nothing helps Juan Antonio Styles DC [address], [place], [address], [facility] 06/16/2024 12:46:36 06/23/2024 text/html HPI - Cervical SpineReported bypatient.Location: bilateral Quality:aching Severity:mild Timing:acute Context:fall Alleviating Factors:chiropracti c care Aggravating Factors:bending; twisting/turning Associated Symptoms:no numbness/tinglingHP I - Lumbar SpineReported bypatient.Location: right; With radiation to knee Quality:aching Severity:mild Timing:occasional Context:bending; lifting; twisting Aggravating Factors:lifting; carrying; twisting; bending/squatting Alleviating Factors:nothing helps Juan Antonio Styles DC [address], [place], [address], [facility] 06/23/2024 10:28:33
--- OUTSIDE RECORDS SUMMARY | 2024-06-28 21:46 | XMS_ITS | Continuity of Care Document ---
Author Organization [place] [facility] Address [address] [place] [address] [address] [place] [address] Assessment Encounter Date Assessment Date Assessment LastModified [...] our office. ecram Not available 06/16/2024 12:44:11 Plan of Treatment Reminders Order Date Submit [...] Organization Details Recorded Time Thoracic segmental dysfunction 734298605 Active 2024 Juan Antonio Kumar [place], [place] [address] [facility], [place], [address], Formerly [facility], [facility]–1983 12:44:10 Low back pain 340225680 Active 2024 Juan Antonio Styles, [place] [address] [facility], [place], [address], Formerly [facility], [facility]–1983 12:44:10 Lumbar segmental dysfunction 672701960 Active 2024 Juan Antonio Styles, [place] [address] [facility], [place], [address], Formerly [facility], 1928–1983 12:44:11 Somatic dysfunction of sacral spine 866149370 Active 2024 Juan Antonio Styles, [place] [address] [facility], [place], [address], Formerly [facility], [facility]–1983 12:44:11 Neck pain 87747139 Active 2024 Juan Antonio Styles, [place] [address] [facility], [place], [address], Formerly [facility], [facility]–1983 12:44:12 Cervical segmental dysfunction 320116564 Active 2024 Juan Antonio Styles, [place] [address] [facility], [place], [address], Formerly [facility], [facility]–1983 12:44:12 Problem Notes None recorded. Procedures Surgical History Date Name Laterality Status Provider Name and Address Organization Details Recorded Time 05059: Spinal manipulation , 3 to 4 regions completed Juan Antonio Styles [place] [address] [facility], [place], [address], Formerly [facility], [facility]–1983 06/23/2024 10:23:57 08357: Spinal manipulation , 3 to 4 regions completed Juan Antonio Styles DC [address] [facility], [place], [address], Formerly [facility], [facility]–1983 06/16/2024 12:46:17 Imaging Results None recorded. Procedure Notes None recorded. Medical Equipment None Reported. Vitals None Recorded Social History None recorded. Functional Status None recorded. Mental Status None recorded. Family History Nothing Reported. Medical History No medical history recorded. Past Encounters Encounter ID Performer Location Encounter Start Date Encounter Closed Date Diagnosis/Indication Diagnosis SNOMED-CT Code Diagnosis ICD10 Code Diagnosis Note [id number] Juan Antonio Styles DC [facility] [address] [facility] [place] [address] 06/16/2024 11:45:55 06/16/2024 13:02:44 Lumbar segmental dysfunction 171946051 M99.03 Low back pain 318090517 M54.50 Somatic dy sfunction of sacral spine 546924174 M99.04 Thoracic s egmental dysfunction 192428289 M99.02 Cervical s egmental dysfunction 932732669 M99.01 Neck pain 95451825 M54.2 Health Concerns Section Related Observation LastModified by Organization Detai ls LastModified Time None Recorded Concern Status LastModified by Organization Details LastModified Time None Recorded Payers Encounter Date Sequence Insurance Name Policy Number Policy Black Covered Member ID Blcak Member ID Guarantor Name 06/16/2024 2 [place] [id number] Tim Tam [id number] Karlo Tam 06/16/2024 1 [place] [employer] Tim Tam [id number] Karlo Tam Notes Date Note Type [...] Alleviating Factors:nothing helps Juan Antonio Styles DC [address] [place] [address], [place], [address], Formerly [facility], [facility]–1983 06/16/2024 12:46:36
--- OUTSIDE RECORDS SUMMARY | 2024-06-28 21:47 | XMS_ITS | Continuity of Care Document ---
Author Organization [place] [facility] Address [address] [place] [address] [address] [place] [address] Assessment Encounter Date Assessment Date Assessment LastModified by Organization Details LastModified Time 06/23/2024 06/23/2024 ASSESSMENT: Patient is a good [...] Organization Details Recorded Time Thoracic segmental dysfunction 293974689 Active 2024 Juan Antonio Kumar [place], [place] [address] [facility], [place], [address], [facility] 12:44:10 Low back pain 089905079 Active 2024 Juan Antonio Styles, [place] [address] [facility], [place], [address], [facility] 12:44:10 Lumbar segmental dysfunction 556771921 Active 2024 Juan Antonio Styles, [place] [address] [facility], [place], [address], [facility] 12:44:11 Somatic dysfunction of sacral spine 905212373 Active 2024 Juan Antonio Styles, [place] [address] [facility], [place], [address], [facility] 12:44:11 Neck pain 48564621 Active 2024 Juan Antonio [place]les, [place] [address] [facility], [place], [address], [facility] 12:44:12 Cervical segmental dysfunction 718993386 Active 2024 Juan Antonio Styles, [place] [address] [facility], [place], [address], [facility] 12:44:12 Problem Notes None recorded. Procedures Surgical History Date Name Laterality Status Provider Name and Address Organization Details Recorded Time 13638: Spinal manipulation , 3 to 4 regions completed Juan Antonio Styles DC [address] [facility], [place], [address], [facility] 06/23/2024 10:23:57 94006: Spinal manipulation , 3 to 4 regions completed Juan Antonio Styles DC [address] [facility], [place], [address], [facility] 06/16/2024 12:46:17 Imaging Results None recorded. Procedure Notes None recorded. Medical Equipment None Reported. Vitals None Recorded Social History None recorded. Functional Status None recorded. Mental Status None recorded. Family History Nothing Reported. Medical History No medical history recorded. Past Encounters Encounter ID Performer Location Encounter Start Date Encounter Closed Date Diagnosis/Indication Diagnosis SNOMED-CT Code Diagnosis ICD10 Code Diagnosis Note [id number] BEBE Lugo [facility] & [address] [place] [address] 06/16/2024 11:45:55 06/16/2024 13:02:44 Lumbar segmental dysfunction 632797208 M99.03 Low back pain 762899293 M54.50 Somatic dy sfunction of sacral spine 827564529 M99.04 Thoracic s egmental dysfunction 473881828 M99.02 Cervical s egmental dysfunction 428480409 M99.01 Neck pain 92051817 M54.2 [id number] [facility] [address] [place] [address] 06/23/2024 10:15:30 06/23/2024 10:29:33 Lumbar segmental dysfunction 362855603 M99.03 Low back pain 573473295 M54.50 Somatic dy sfunction of sacral spine 047634579 M99.04 Thoracic s egmental dysfunction 273812225 M99.02 Cervical s egmental dysfunction 026422115 M99.01 Neck pain 30685297 M54.2 Health Concerns Section Related Observation LastModified by Organization Detai ls LastModified Time None Recorded Concern Status LastModified by Organization Details LastModified Time None Recorded Payers Encounter Date Sequence Insurance Name Policy Number Policy Black Covered Member ID Black Member ID Guarantor Name 06/23/2024 2 [place] [id number] Tim Tam [id number] Karlo Yonatan 06/23/2024 1 [place] [employer] [facility] Tim Tam [id number] Karlo Tam Notes Date Note Type Note Provider Name and Address Organization Details Recorded Time 06/23/2024 text/html HPI - Cervical SpineReported bypatient.Location: bilateral Quality:aching Severity:mild Timing:acute Context:fall Alleviating Factors:chiropracti c care Aggravating Factors:bending; twisting/turning Associated Symptoms:no numbness/tinglingHP I - Lumbar SpineReported bypatient.Location: right; With radiation to knee Quality:aching Severity:mild Timing:occasional Context:bending; lifting; twisting Aggravating Factors:lifting; carrying; twisting; bending/squatting Alleviating Factors:nothing helps Juan Antonio Styles DC [address] [place] [address], [place], [address], [facility] 06/23/2024 10:28:33
[2024-06-28 22:04] VITALS: BP 133/75; PULSE 88; RESP 16; TEMP 38.1; O2SAT 96; BMI 30.4
--- NOTE | 2024-06-28 22:31 | ED_ITS ---
HPI - General Adult General Time Seen by Provider: 22:31 Date Seen: 06/28/24 Chief complaint: Urogenital Problems, Male Stated complaint: fever, catheter pain Time Seen by Provider: 06/28/24 22:12 Source: patient, RN notes reviewed and old records reviewed Mode of arrival: ambulatory Limitations: no limitations History of Present Illness HPI narrative: 74-year-old male with indwelling catheter secondary placed during recent hospitalization when he was admitted for lower GI bleed thought to be possibly diverticular, notes fever today, decreased stool output. Patient notes chills and fever starting yesterday, no cough, no runny nose. No abdominal pain. Notes some pain at the tip of the penis occasionally, catheter is draining well. Has not had a bowel movement for 4 5 days, does have some rectal fullness. No rashes. Not currently on antibiotics. Related Data Home Medications ?Medication ?Instructions ?Recorded ?Confirmed omeprazole 20 mg capsule,delayed 20 mg PO DAILY 06/11/24 06/28/24 release albuterol 90 mcg/actuation aerosol 2 spray inhalation .Q4hprn 06/16/24 06/28/24 inhaler meclizine 25 mg tablet 25 mg PO TID PRN 06/16/24 06/20/24 ondansetron 4 mg disintegrating 4 mg PO Q6H PRN 06/16/24 06/20/24 tablet ferrous sulfate 325 mg (65 mg 325 mg PO QDAY 06/20/24 06/28/24 iron) tablet Previous Rx's ?Medication ?Instructions ?Recorded acetaminophen 325 mg tablet 650 mg (2 x 325 mg) PO QID PRN 06/14/24 pain #100 tabs dutasteride 0.5 mg capsule 0.5 mg PO DAILY 30 days #30 caps 06/15/24 (Avodart) tamsulosin 0.4 mg capsule 0.4 mg PO HS 30 days #30 caps 06/15/24 cefdinir 300 mg capsule 300 mg PO BID #14 caps 06/29/24 Allergies Allergy/AdvReac Type Severity Reaction Status Date / Time house dust Allergy Unknown Verified 06/29/24 01:22 [facility] Medical History (Updated 06/29/24 @ 01:40 by Mekhi Perez MD) Degenerative joint disease of cervical spine ?M47.812 - Spondylosis without myelopathy or radiculopathy, cervical region (ICD-10) Elevated PSA ?R97.20 - Elevated prostate specific antigen [PSA] (ICD-10) Mild intermittent asthma ?J45.20 - Mild intermittent asthma, uncomplicated (ICD-10) Syncope ?R55 - Syncope and collapse (ICD-10) Diverticulosis ?K57.90 - Diverticulosis of intestine, part unspecified, without perforation or abscess without bleeding (ICD-10) GERD (gastroesophageal reflux disease) ?K21.9 - Gastro-esophageal reflux disease without esophagitis (ICD-10) Tear of medial meniscus of right knee ?S83.241A - Other tear of medial meniscus, current injury, right knee, initial encounter (ICD-10) Osteoarthritis of right knee ?M17.11 - Unilateral primary osteoarthritis, right knee (ICD-10) 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 (ICD-10) GERARDO (obstructive sleep apnea) ?G47.33 - Obstructive sleep apnea (adult) (pediatric) (ICD-10) BPH with obstruction/lower urinary tract symptoms ?N40.1 - Benign prostatic hyperplasia with lower urinary tract symptoms (ICD- 10) ?N13.8 - Other obstructive and reflux uropathy (ICD-10) Urinary retention due to benign prostatic hyperplasia ?N40.1 - Benign prostatic hyperplasia with lower urinary tract symptoms (ICD- 10) ?R33.8 - Other retention of urine (ICD-10) Lumbar transverse process fracture (03/18/10) ?S32.009A - Unspecified fracture of unspecified lumbar vertebra, initial enco unter for closed fracture (ICD-10) Environmental allergies (03/18/10) ?Z91.09 - Other allergy status, other than to drugs and biological substances (ICD-10) Family History (Updated 06/17/24 @ 01:06 by Yousif Dalton MD) Father Heart disease High blood pressure Social History (Updated 06/22/24 @ 22:19 by Yousif Dalton MD) Narrative: , three kids, 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, nonsmoker, no EtOH What is your current living situation?: I presently have a place to live Problems where you live: no known problems Problems where you live details: n/a In the past 12 months, utilities in danger of being shut off: no In past 12 months, lack of transportation kept you from medical appts, meetings, work, or getting things needed for daily living: no In the past 12 mos, have been you worried that your food would run out before you had money to buy more?: never true In the past 12 mos, the food you bought just didn't last and you didn't have money to buy more?: never true Highest level of school completed/degree received: GED or equivalent Smoking Status: Never smoker Do you use any of these nicotine containing products: None How often do you have a drink containing alcohol: never How often do you have six or more drinks on one occasion: Never AUDIT-C Alcohol total score: 0 Non-prescribed substance use: denies use Caffeine: Yes How often does anyone, including family, friends and others, physically hurt you : never How often does anyone, including family, friends and others, insult or talk down to you: never How often does anyone, including family, friends and others, threaten you with harm: never How often does anyone, including family, friends and others, scream or curse at you: never Exam Narrative: Exam Narrative: General: Well-developed and well-nourished, no acute distress Head: Atraumatic and normocephalic Eyes: Pupils are equal reactive, extraocular motions intact, conjunctiva clear ENT: External nose and ears are normal, posterior pharynx without erythema or exudate Neck: No midline cervical tenderness, full spontaneous range of motion the neck, trachea midline, no adenopathy Heart: Regular rate and rhythm no murmurs or thrills Lungs: Clear to auscultation bilaterally without wheezes or crackles Abdomen: Soft, nontender, nondistended with active bowel sounds Musculoskeletal: No tenderness, deformity, or edema Neurologic: Awake, alert, and oriented x3, no gross focal neurologic deficits, cranial nerves intact as tested Psych: Mood and affect are appropriate Skin: No rashes Const: Vital Signs, click to edit/add: Vital Signs - 24 hr 06/28/24 22:04 06/28/24 23:21 06/28/24 23:30 Temperature 100.5 F H Pulse Rate 80 80 Pulse Rate [Pulse Oximeter] 88 Respiratory Rate 16 Blood Pressure Blood Pressure [Ri ght Upper Arm] 133/75 Pulse Oximetry 96 95 94 Oxygen Delivery Me thod Room Air 06/28/24 23:31 06/28/24 23:45 Temperature Pulse Rate 84 82 Pulse Rate [Pulse Oximeter] Respiratory Rate Blood Pressure 159/82 H Blood Pressure [Ri ght Upper Arm] Pulse Oximetry 93 93 Oxygen Delivery Tn thod Course Course ED Course: Reviewed most prior hospital admission from June 11 when patient was admitted with rectal bleeding, CT angiogram with bleeding the proximal sigmoid, was orthostatic, noted of urinary retention on June 14 and catheter was placed. Patient presents today with multiple complaints, some pain at the tip of the penis, catheter is in place and is draining well, this likely is from irritation of the bladder from the balloon but consider urinary infection, urinalysis is ordered although patient has no abdominal tenderness. He also concerned about not having a bowel movement for several days, abdomen is soft, n o vomiting, no evidence for obstruction but would consider constipation or external pressure on the rectum from colitis for abscess. CT scan of the abdomen and pelvis is ordered. Patient with febrile illness, this could be intra-abdominal or could be separate from this including a viral respiratory process or pneumonia, atelectasis. The viral panel is ordered. Will continue to monitor. Reevaluation(s) Time of Reevaluation #1: 00:10 Reevaluation #1: Labs independently interpreted by me with leukocytosis, hemoglobin 10.1 which is stable for the patient, normal lactate, normal basic panel. Time of Reevaluation #2: 01:25 Reevaluation #2: CT abdomen and pelvis and panel interpreted by me does not demonstrate acute intra-abdominal findings, bladder is little distended but this is likely because the catheter is been clamped in order to get a urine sample. Mild atelectasis at the lung bases. Time of Reevaluation #3: 01:38 Reevaluation #3: Reviewed radiology interpretation of CT scan which shows a small adrenal nodule which could be followed up as an outpatient. Reviewed radiology interpretation chest x-ray which is negative for acute intrathoracic findings. Urinalysis is pending but suspect symptoms today are from urinary tract infection. Patient will be given Rocephin in the emergency department, urinalysis is still pending. Other than leukocytosis, labs are reassuring and he patient has a fever but is otherwise finally stable, likely can be discharged tonight. Additional Reevaluation(s): 1:53 a.m. urinalysis weakly positive with white blood cells out of proportion red cells, moderate bacteria. Rocephin IV is ordered, urine culture will be ordered and blood culture will be performed as well, otherwise patient remains finally stable, normal lactate, mild leukocytosis, but stable for discharge. Vital Signs Vital signs: Initial Vital Signs Temperature 100.5 F H 06/28/24 22:04 Temperature Source Temporal Artery Scan 06/28/24 22:04 Pulse Rate 88 06/28/24 22:04 Respiratory Rate 16 06/28/24 22:04 Blood Pressure 133/75 06/28/24 22:04 Blood Pressure Mean 94 06/28/24 22:04 Blood Pressure Position Sitting 06/28/24 22:04 Pulse Oximetry 96 06/28/24 22:04 Oxygen Delivery Method Room Air 06/28/24 22:04 Vital Signs Temperature 100.5 F H 06/28/24 22:04 Pulse Rate 88 06/28/24 22:04 Respiratory Rate 16 06/28/24 22:04 Blood Pressure 133/75 06/28/24 22:04 Pulse Oximetry 96 06/28/24 22:04 Oxygen Delivery Method Room Air 06/28/24 22:04 Temperature 100.5 F H 06/28/24 22:04 Pulse Rate 82 06/28/24 23:45 Respiratory Rate 16 06/28/24 22:04 Blood Pressure 159/82 H 06/28/24 23:31 Pulse Oximetry 93 06/28/24 23:45 Oxygen Delivery Method Room Air 06/28/24 22:04 Medications Administered Medications: Discontinued Medications Generic Name Dose Route Start Last Admin Trade Name Freq PRN Reason Stop Dose Admin Ceftriaxone Sodium 1 gm/ 100 mls @ 200 mls/hr 06/29/24 01:52 06/29/24 02:19 Sodium Chloride IVPB 06/29/24 01:53 200 mls/hr ONCE ONE Administration Medical Decision Making Lab Data Labs: Lab Results 06/28/24 06/28/24 06/29/24 Range/Units 23:20 23:49 : WBC 16.02 H (4.50-11.00) K/uL RBC 3.24 L (4.30-5.90) m/uL Hgb 10.1 L (13.5-17.5) gm/dL Hct 30.7 L (37.0-53.0) % MCV 95 (80-100) fL MCH 31 (26-34) pg MCHC 33 (32-36) gm/dL RDW Coeff of Mk 13.9 (11.5-15.5) % Plt Count 604 H (140-440) K/uL Neut % (Auto) 79.0 H (42.0-72.0) % Lymph % (Auto) 9.4 L (20-44) % Bergen % (Auto) 9.3 (0.0-11.0) % Eos % (Auto) 1.0 (0.0-7.0) % Baso % (Auto) 0.4 (0.0-3.0) % Neut # (Auto) 12.70 H (1.7-7.0) K/uL Lymph # (Auto) 1.50 (0.90-2.90) K/uL Bergen # (Auto) 1.50 H (0.00-0.90) K/UL Eos # (Auto) 0.20 (0.00-0.50) K/uL Baso # (Auto) 0.10 (0.00-0.30) K/uL Abs Immat Gran (auto) 0.10 (0.00-0.30) K/uL Imm/Tot Granulo (auto) 0.9 % Sodium 134 L (135-149) mmol/L Potassium 4.5 (3.6-5.1) mmol/L Chloride 103 (96-114) mmol/L Carbon Dioxide 24 (20-32) mmol/L Anion Gap 7 (7-15) mEq/L BUN 17 (7-30) mg/dL Creatinine 1.1 (0.5-1.5) mg/dL Estimated Creat Clear 57.86 Estimated GFR 71 ml/min Glucose 117 H (60-115) mg/dL Lactate 0.9 (0.5-1.9) mmol/L Calcium 8.6 (8.4-10.6) mg/dL Magnesium 2.2 (1.5-2.6) mg/dL Urine Color Yellow (Yellow) Urine Appearance Clear (Clear) Urine pH 7.0 (5.0-8.5) Ur Specific Jackson 1.015 (1.000-1.030) Urine Protein Negative (Negative) Urine Glucose (UA) Negative (Negative) Urine Ketones Negative (Negative) Urine Blood 2+ A (Negative) Urine Nitrite Negative (Negative) Urine Bilirubin Negative (Negative) Urine Urobilinogen 0.2 (0.2-1.0) Ur Leukocyte Esterase Trace A (Negative) Urine RBC 25-50 A (0-2) Urine WBC 5-10 A (0-5) Ur Squamous Epith Cells Few (None-Few) Amorphous Sediment Few A (None) Urine Bacteria Moderate A (None) SARS-CoV-2 (PCR) Negative SARS-CoV-2 (Negative) Influenza Type A (PCR) Negative PCR FLU A (Negative) Influenza Type B (PCR) Negative PCR FLU B (Negative) RSV (PCR) Negative PCR RSV (Negative) Lab Acknowledgement Test Added Discharge Plan Discharge Clinical Impression: Catheter-associated urinary tract infection Patient Disposition: Home, Self-Care Condition: Stable Instructions: Catheter-associated Urinary Tract Infection (ED) Additional Instructions: Take antibiotics as prescribed starting evening of June 29 Follow-up with your primary care provider in 3-5 days Activity Level: No Restrictions Discharge Diet: Regular Prescriptions: New cefdinir 300 mg capsule 300 mg PO BID Qty: 14 0RF No Action meclizine 25 mg tablet 25 mg PO TID PRN ondansetron 4 mg tablet,disintegrating 4 mg PO Q6H PRN albuterol 90 mcg/actuation aerosol 2 spray inhalation .Q4hprn Rx Instructions: use with spacer ferrous sulfate 325 mg (65 mg iron) tablet 325 mg PO QDAY omeprazole 20 mg capsule,delayed release(DR/EC) 20 mg PO DAILY acetaminophen 325 mg tablet 650 mg PO QID PRN (Reason: pain) Qty: 100 0RF tamsulosin 0.4 mg Capsule 0.4 mg PO HS 30 Days Qty: 30 1RF dutasteride [Avodart] 0.5 mg Capsule 0.5 mg PO DAILY 30 Days Qty: 30 1RF Follow Up/Referrals: Yousif Dalton MD [Primary Care Provider] - Stand Alone Forms: [employer] Info Instructions
--- NOTE | 2024-06-28 23:09 | CRLHL7_ITS ---
For Patients: As a result of the Century Cures Act, medical imaging exams and procedure reports are released immediately into your electronic medical record. You may view this report before your referring provider. If you have questions, please contact your health care provider. INDICATION: Pelvic fullness, fever. TECHNIQUE: CT abdomen and pelvis acquired with 98 cc Isovue 370 IV contrast. COMPARISON: 06/11/2024. FINDINGS: Lower chest: Mild subsegmental atelectasis. Liver: Right lobe subcentimeter hypodense lesion that is too small to characterize but likely a cyst. Normal in size and attenuation. No suspicious masses. Gallbladder and bile ducts: Unremarkable. No stones or inflammation. No biliary dilatation. Pancreas: Unremarkable. No mass or inflammation. Spleen: Small splenules. Normal in size. No masses. Adrenal glands: Stable size and appearance 1.3 cm right adrenal nodule. Left adrenal is unremarkable. Kidneys: Stable cysts and subcentimeter hypodense lesions that are too small to characterize but likely cysts. No suspicious masses, stones, or hydronephrosis. GI tract: Colonic diverticuli, but no acute diverticulitis. Normal in caliber. No sign of mass or inflammation. Normal appendix. Vasculature: Abdominal aorta is normal in caliber. Mesenteric arteries are patent. Lymph nodes: No pathologic lymphadenopathy. Peritoneum/Abdominal Wall: Unremarkable. No sign of mass or infiltration. No free air or significant free fluid. Pelvis: Bladder catheter in place, but intraluminal fluid is present. Enlarged and heterogeneous appearance of the prostate. Bones: No acute or suspicious lesions. Old right rib and spinal transverse process fractures. IMPRESSION: 1. No definite acute findings. 2. Intraluminal bladder fluid despite the presence of a catheter. Correlate for catheter malfunction. 3. Stable small right adrenal nodule that is incompletely characterized on this post-contrast exam. Please note that all CT scans at this facility use dose modulation, iterative reconstruction, and/or weight-based dosing when appropriate to reduce radiation dose to as low as reasonably achievable. Dictated by Yousif Lua MD @ 06/29/2024 1:37:20 AM (Electronically Signed)
[2024-06-28 23:21] VITALS: PULSE 80; O2SAT 95
[2024-06-28 23:30] VITALS: PULSE 80; O2SAT 94
[2024-06-28 23:30] LABS: Lactate* 0.9 mmol/L (0.5-1.9)
[2024-06-28 23:31] VITALS: BP 159/82; PULSE 84; O2SAT 93
[2024-06-28 23:45] VITALS: PULSE 82; O2SAT 93
[2024-06-28 23:51] LABS: Chloride* 103 mmol/L (96-114); Potassium* 4.5 mmol/L (3.6-5.1); Sodium* 134 mmol/L (135-149)
[2024-06-28 23:52] LABS: Basophils Percent Auto 0.4 % (0.0-3.0); Hematocrit 30.7 % (37.0-53.0); Hemoglobin* 10.1 gm/dL (13.5-17.5); Immature Granulocytes Pct Auto 0.9 %; Lymphocytes Percent Auto 9.4 % (20-44); Mean Corpuscular HGB Conc 33 gm/dL (32-36); Mean Corpuscular Hemoglobin 31 pg (26-34); Mean Corpuscular Volume 95 fL (80-100); Monocytes Percent Auto 9.3 % (0.0-11.0); Platelet Count* 604 K/uL (140-440); RDW Coefficient of Variation % 13.9 % (11.5-15.5); Red Blood Count 3.24 m/uL (4.30-5.90); White Blood Count* 16.02 K/uL (4.50-11.00)
[2024-06-28 23:53] LABS: Creatinine* 1.1 mg/dL (0.5-1.5); Est. Creatinine Clearance* 57.86; Estimated Glomerular Filt Rate 71 ml/min
[2024-06-28 23:54] LABS: Anion Gap 7 mEq/L (7-15); Blood Urea Nitrogen* 17 mg/dL (7-30); Calcium* 8.6 mg/dL (8.4-10.6); Carbon Dioxide* 24 mmol/L (20-32); Glucose* 117 mg/dL (60-115); Magnesium* 2.2 mg/dL (1.5-2.6)
--- OUTSIDE RECORDS SUMMARY | 2024-06-28 23:57 | XMS_ITS | Clinical Summary ---
Author Organization [facility] Address [place], [place] [address] Care Team Providers Care Manager Progressive Care Name Role Phone Neil Parker MD Primary Care Provider [phone] Allergies No known active allergies Medications PRILOSEC 20 MG CAP take 1 capsule (20 mg) by oral route once daily before a meal 0 08/05/2008 Active fluticasone, 50 mcg per actuation, nasal (FLONASE) 50 mcg/Actuation nasal sprayIndication s:Nasal congestion Inhale 2 Sprays into both nostrils once daily. [place] dose in each nostril. 1 Bottle 12 [...] on file Legal Sex Male 5:42 AM MEDICATION ASSISTANT Gender Identity Not on file Sexual Orientation [...] 175.3 cm (5' 9) 07/26/2009 9:27 AM MEDICATION ASSISTANT Body Mass Index 30.24 07/26/2009 9:27 AM MEDICATION ASSISTANT Plan of Treatment Health Maintenance Due Date [...] Comments LIPID PANEL Routine 08/05/2008 10:41 AM MEDICATION ASSISTANT Lipid Screening from Last 3 Months or Most Recently Relevant to Health Maintenance Results * (ABNORMAL) LIPID PANEL (08/05/2008 10:41 AM MEDICATION ASSISTANT) CHOLESTEROL,TOTAL 189 110 - 199 mg/dL [facility] TRIGLYCERIDES 164(H) <150 mg/dL [facility] HDL CHOLESTEROL 36(L) >40 mg/dL [facility] CHOL/HDL RATIO 5.25(H) <4.51 [facility] LDL CHOLESTEROL 120 <131 mg/dL [facility] PATIENT STATUS Fasting [facility] Blood specimen (specimen) BLOOD SPECIMEN / Unknown 08/05/2008 10:41 AM MEDICATION ASSISTANT 08/05/2008 10:34 AM MEDICATION ASSISTANT Chon Guo MD CHEMISTRY Final Result [facility] [address] [place] [address] from Last 3 Months or Most Recently Relevant to Health Maintenance Insurance [facility] [employer] Care Teams Manager Progressive Care Relationship Specialty Start Date End Date Neil Parker MD PCP - General Family Practice 06/05/13
[2024-06-29 00:01] LABS: Slide Review Reflex No
[2024-06-29 00:16] LABS: PCR FLU A Negative PCR FLU A (Negative); PCR FLU B Negative PCR FLU B (Negative); PCR RSV Negative PCR RSV (Negative); SARS PCR* Negative SARS-CoV-2 (Negative)
--- NOTE | 2024-06-29 01:27 | CRLHL7_ITS ---
For Patients: As a result of the Cures Act, medical imaging exams and procedure reports are released immediately into your electronic medical record. You may view this report before your referring provider. If you have questions, please contact your health care provider. Indication: Fever Technique: Single view of the chest Comparison: None Findings/Impression: No acute cardiopulmonary process detected. Dictated by Job Winter MD @ 06/29/2024 1:36:04 AM (Electronically Signed)
[2024-06-29 01:39] LABS: Appearance Urine Clear (Clear); Bilirubin Urine Negative (Negative); Blood Urine 2+ (Negative); Color Urine Yellow (Yellow); Glucose Urine Negative (Negative); Ketones Urine Negative (Negative); Leukocyte Esterase Urine Trace (Negative); Nitrite Urine Negative (Negative); Protein Urine Negative (Negative); Specific Gravity Urine 1.015 (1.000-1.030); Urobilinogen Urine 0.2 (0.2-1.0)
[2024-06-29 01:49] LABS: Amorphous Sediment Urine Few; Bacteria Urine Moderate; RBC Urine 25-50 (0-2); Squamous Epithelial Cell Urine Few (None-Few)
[2024-06-29] MEDS: cefTRIAXone 1 GM in 0.9 % SODIUM CHLORIDE Mini-bag 100 ML IVPB (02:19)
[2024-06-29 02:55] VITALS: BP 125/74; PULSE 81; RESP 16; TEMP 37.5; O2SAT 93
[2024-06-29 02:56] VITALS: BP 125/74; PULSE 81; RESP 16; TEMP 37.5
== END 2024-06-29 02:56 | disposition home or self-care (01) ==
PROVIDERS: Emergency Provider Family Medicine; PCP Family Medicine
DX: T83.511A Infection and inflammatory reaction due to indwelling urethral catheter, initial encounter (principal); N39.0 Urinary tract infection, site not specified
CPT/HCPCS: 36415; 71045; 74177; 80048; 81001; 83605; 83735; 85025; 87040; 87086; 87631; 94761; 96374; 99284; 99285; J0696; Q9967

== ENCOUNTER 2024-09-24 04:04 | Outpatient (CLI) | payer MEDICARE, BC, SELFPAY | END 2024-09-24 04:05 | disposition home or self-care (01) | LOC: AMB 09-25 10:29 | PROVIDERS: PCP Family Medicine; Visit Provider Family Medicine | DX: R10.9 Unspecified abdominal pain (principal); L76.22 Postprocedural hemorrhage of skin and subcutaneous tissue following other procedure | CPT/HCPCS: A0425; A0433 ==

== ENCOUNTER 2025-01-07 21:09 | Inpatient (IN) | payer MEDICARE, BC, SELFPAY ==
--- OUTSIDE RECORDS SUMMARY | 2024-11-25 06:45 | XMS_ITS | Encounter Summary ---
Author Organization [facility] Address [address] [place] [address] Care Team Providers Care Laundry Aide Name Role Phone Elsewhere, Pcp Primary Care Provider Unavailabl e Encounter Details Date Type Department Care Team (Latest Contact Info) Description 11/25/2024 6:45 AM CDT - 11/25/2024 11:59 PM CDT Hospital Encounter Department of Laboratory Medicine and Pathology, [facility] in [place], [place] [address] [place] [address] Mack Morrell M.D. Primary Malignant Neoplasm Of Prostate (HCC) Discharge Disposition: Home or Self Care Social History Tobacco Use Types Packs/Day Years Used Date Smoking Tobacco: Never Smokeless Tobacco: Never Alcohol Use Standard Drinks/Week Comments Never 0 (1 standard drink = 0.6 oz pur e alcohol) [facility] Utilities Answer Date Recorded In the past 12 months has [facility] Interview, gas, oil, or water [employer] threatened to shut off services in your home? No 09/24/2024 Humiliation, Afraid, Rape, and Kick questionnair e Answer Date Recorded Within the last year, have y ou been afraid of your partner or ex-partner? No 09/24/2024 Within the last year, have y ou been humiliated or emotionally abused in other ways by your partner or ex-partner? No Within the last year, have y ou been kicked, hit, slapped, or otherwise physically hurt by your partner or ex-partner? No 09/24/2024 Within the last year, have y ou been raped or forced to have any kind of sexual activity by your partner or ex-partner? No 09/24/2024 Hunger Vital Sign Answer Date Recorded Within the past 12 months, y ou worried that your food would run out before you got the money to buy more. Never true 09/25/19 25 Within the past 12 months, t he food you bought just didn't last and you didn't have money to get more. Never true 09/24/2024 PRAPARE - Transportation Answer Date Re corded In the past 12 months, has l ack of transportation kept you from medical appointments or from getting medications? No 09/03 In the past 12 months, has l ack of transportation kept you from meetings, work, or from getting things needed for daily living? No 09/24/2024 Housing Stability Answer Date Recorded What is your living situation today? I have a [facility] place to live 09/24/2024 Sex and Gender Information Value Date Recorded Sex Assigned at Male 06/30/2024 1:58 AM SOFTWARE DEVELOPMENT ENGINEER Legal Sex Male 7:10 AM SOFTWARE DEVELOPMENT ENGINEER Gender Identity Male 06/30/2024 1:58 AM SOFTWARE DEVELOPMENT ENGINEER Sexual Orientation Straight 06/30/2024 1: 58 AM SOFTWARE DEVELOPMENT ENGINEER documented as of this encounter Medications at Time of Discharge acetaminophen (TylenoL) 500 mg tablet Take 2 tablets (1,000 mg total) by mouth every 6 (six) hours as needed for pain. 09/28/2024 albuterol 90 mcg/actuation inhaler Inhale 2 puffs every 6 (six) hours as needed for wheezing or shortness of breath. DME CPAP DME Order omeprazole (PriLOSEC) [address] capsule Take 20 mg by mouth daily before morning meal. 08/05/2008 oxyCODONE (Roxicodone) 5 mg immediate release tabletIndication s:Acute Pain Take 1 tablet (5 mg total) by mouth every 4 (four) hours as needed for pain Indication: Acute Pain. 12 tablet 09/28/2024 12:05 PM CDT 09/28/2024 sennosides-docus ate sodium (Senokot-S) 8.6-50 mg per tablet Take 1 tablet by mouth 2 (two) times a day as needed for constipation. To prevent/treat constipation while taking opioid pain medications. Hold for loose stools. 09/28/2024 documented as of this encounter Plan of Treatment Scheduled Orders Name Type Priority Associated Diagnoses Orde r Schedule PSA (Prostate-Specific Antigen), Diagnostic Lab Routine Primary Malignant Neoplasm Of Prostate (HCC) Once for 1 Occurrences starting 11/25/2024 until 11/25/2024 documented as of this encounter Visit Diagnoses Diagnosis Primary Malignant Neoplasm Of Prostate (HCC) documented in this encounter Care Teams Laundry Aide Relationship Specialty Start Date End Date Elsewhere, Pcp PCP - General Internal Medicine 09/24/24 documented as of this encounter
--- OUTSIDE RECORDS SUMMARY | 2024-12-01 12:13 | XMS_ITS | Encounter Summary ---
Author Organization [facility] Address [address] [place] [address] Care Team Providers Care Digital Sales Manager Name Role Phone Elsewhere, Pcp Primary Care Provider Unavailabl e Encounter Details Date Type Department Care Team (Latest Contact Info) Description 12/01/2024 12:13 PM CDT - 12/01/2024 11:59 PM CDT Hospital Encounter Department of Laboratory Medicine and Pathology, [facility] in [place], [place] [address] [place] [address] Mack Morrell M.D. Primary Malignant Neoplasm Of Prostate (HCC) Discharge Disposition: Home or Self Care Social History Tobacco Use Types Packs/Day Years Used Date Smoking Tobacco: Never Smokeless Tobacco: Never Alcohol Use Standard Drinks/Week Comments Never 0 (1 standard drink = 0.6 oz pur e alcohol) [facility] Utilities Answer Date Recorded In the past 12 months has [facility] [employer], gas, oil, or water [employer] threatened to shut off services in your [...] your living situation today? I have a [facility] place to live 09/24/2024 Sex and Gender Information Value Date Recorded Sex Assigned at Male 06/30/2024 1:58 AM STREETCAR OPERATOR Legal Sex Male 7:10 AM STREETCAR OPERATOR Gender Identity Male 06/30/2024 1:58 AM STREETCAR OPERATOR Sexual Orientation Straight 06/30/2024 1: 58 AM STREETCAR OPERATOR documented as of this encounter Medications at [...] as of this encounter Plan of Treatment Not on file documented as of this encounter Procedures Procedure Name Priority Date/Time Associated Diagnosis Comments PROSTATE-SPECIFIC AG (PSA) DIAGNOSTIC, S Routine 12/01/2024 12:19 PM CDT Primary Malignant Neoplasm Of Prostate (HCC) documented in this encounter Results * PSA (Prostate-Specific Antigen), Diagnostic (12/01/2024 12:19 PM CDT) Prostate-Specific Ag <0.10 <=6.5 ng/mL 12/01/2024 1:37 PM CDT DTL Comment: ----ADDITIONAL INFORMATION---- The testing method is an electrochemiluminescence assay manufactured by [employer] and performed on the Modular or Preeti system. Values obtained with different assay methods or kits may be different and cannot be used interchangeably. Test results cannot be interpreted as absolute evidence for the presence or absence of malignant disease. Blood (Blood, Venous) 12/01/2024 12:19 PM CDT 12/01/2024 1:07 PM CDT us Mack Morrell M.D. LAB BLOOD ADD-ON Final Resu lt [facility] [address] [place] [address], [place] DTL [facility] [address] [place] [address] documented in this encounter Visit Diagnoses Diagnosis Primary Malignant Neoplasm Of Prostate (HCC) documented in this encounter Care Teams Digital Sales Manager Relationship Specialty Start Date End Date Elsewhere, Pcp PCP - General Internal Medicine 09/24/24 documented as of this encounter
[2025-01-07] VITALS (8 sets, daily range): BP systolic 159–180; BP diastolic 80–93; PULSE 74–98; RESP 18–22; TEMP 37–37.7; O2SAT 87–96; BMI 30.4
--- OUTSIDE RECORDS SUMMARY | 2025-01-07 21:11 | XMS_ITS | Encounter Summary ---
Author Organization [facility] Address [address] [place] [address] Care Team Providers Care Chief Procurement Officer Name Role Phone Elsewhere, Pcp Primary Care Provider Unavailabl e Encounter Details Date Type Department Care Team ([facility] st Contact Info) Description 12/02/2024 Results Follow-Up Department of Urology in [place], [place] [address] [place] [phone] Chico Bowman M.D. [address] [place] [address] PSA (Prostate-Specific Antigen), Diagnostic Social History Tobacco Use Types Packs/Day Years Used Date Smoking Tobacco: Never Smokeless Tobacco: Never Alcohol Use Standard Drinks/Week Comments Never 0 (1 standard drink = 0.6 oz pur e alcohol) [facility] Utilities Answer Date Recorded In the past 12 months has [facility] [employer], gas, oil, or water [employer] threatened to shut off services in your [...] your living situation today? I have a [facility] place to live 09/24/2024 Sex and Gender Information Value Date Recorded Sex Assigned at Male 06/30/2024 1:58 AM CUSTOMER MARKETING ASSISTANT Legal Sex Male 7:10 AM CUSTOMER MARKETING ASSISTANT Gender Identity Male 06/30/2024 1:58 AM CUSTOMER MARKETING ASSISTANT Sexual Orientation Straight 06/30/2024 1: 58 AM CUSTOMER MARKETING ASSISTANT documented as of this encounter Plan of Treatment Not on file documented as of this encounter Visit Diagnoses Not on filedocumented in this encounter Care Teams Chief Procurement Officer Relationship Specialty Start Date End Date Elsewhere, Pcp PCP - General Internal Medicine 09/24/24 documented as of this encounter
--- OUTSIDE RECORDS SUMMARY | 2025-01-07 21:11 | XMS_ITS | Clinical Summary ---
Author Organization [employer] [facility] Address [address] [place] [id number] Care Team Providers Care Auto Body Customizer Name Role Phone Neil Parker MD Primary Care Provider Unava ilable Allergies No known active allergies Medications PRILOSEC 20 MG CAP take 1 capsule (20 mg) by oral route once daily before a meal 0 08/05/2008 Active fluticasone, 50 mcg per actuation, nasal (FLONASE) 50 mcg/Actuation nasal sprayIndication s:Nasal congestion Inhale 2 Sprays into both nostrils once daily. [place] dose in each nostril. 1 Bottle 12 07/26/2009 Active Active Problems Problem Noted Date Diagnosed Date Routine adult health maintenance 07/17/2013 Overview (07/17/2013): Colonoscopy 07/2013 normal repeat in 10 years Unspecified asthma(493.90) 08/13/2006 Simple or unspecified chronic serous otitis medi a 08/13/2006 Other dyspnea and respiratory abnormality 2006 Immunizations Immunization Administration Dates Next Due Td (Age >=7 [...] on file Legal Sex Male 5:42 AM MACHINE SCALLOP CUTTER Gender Identity Not on file Sexual Orientation [...] 175.3 cm (5' 9) 07/26/2009 9:27 AM MACHINE SCALLOP CUTTER Body Mass Index 30.24 07/26/2009 9:27 AM MACHINE SCALLOP CUTTER Plan of Treatment Health Maintenance Due Date Last Done Comments Depression screening for age 12+ 1963 BMI (ht and wt on same day) for age 18+ 1969 Hepatitis C screening for ag e 18-79 1969 Pneumococcal series for age 50+ (1 of 1 - PCV) 2001 Zoster (shingles) series for age 50+ (1 of 2) 2001 Lipids for age 45-75 08/05/2013 08/05/2008 Tetanus booster 08/05/2018 08/05/2008, 01/03/1999 Colonoscopy through age 75 07/17/202307/17, 07/17/2013 COVID-19 vaccine series ( - 2023- season) 2024 Influenza Vaccine (#1) 2025 RSV vaccine for adults or (1 - 1-dose 75+ series) 2026 Hepatitis B series for 19+ Aged Out N o longer eligible based on patient's age to complete this topic Procedures Procedure Name Priority Date/Time Associated Diagnosis Comments LIPID PANEL Routine 08/05/2008 10:41 AM MACHINE SCALLOP CUTTER Lipid Screening from Last 3 Months or Most Recently Relevant to Health Maintenance Results * (ABNORMAL) LIPID PANEL (08/05/2008 10:41 AM MACHINE SCALLOP CUTTER) CHOLESTEROL,TOTAL 189 110 - 199 mg/dL [facility] TRIGLYCERIDES 164(H) <150 mg/dL [facility] HDL CHOLESTEROL 36(L) >40 mg/dL [facility] CHOL/HDL RATIO 5.25(H) <4.51 [facility] LDL CHOLESTEROL 120 <131 mg/dL [facility] PATIENT STATUS Fasting [facility] Blood specimen (specimen) BLOOD SPECIMEN / Unknown 08/05/2008 10:41 AM MACHINE SCALLOP CUTTER 08/05/2008 10:34 AM MACHINE SCALLOP CUTTER Chon Guo MD CHEMISTRY Final Result [facility] [address] [place] [address] from Last 3 Months or Most Recently Relevant to Health Maintenance Insurance [employer] ONLY [employer] Care Teams Auto Body Customizer Relationship Specialty Start Date End Date Neil Parker MD PCP - General Family Practice 06/05/13
--- OUTSIDE RECORDS SUMMARY | 2025-01-07 21:11 | XMS_ITS | Clinical Summary ---
Author Organization [facility] Address [address] [place] [address] Care Team Providers Care Supervisor Game Farm Name Role Phone Elsewhere, Pcp Primary Care Provider Unavailabl e Source Comments Patient records contain information from all sites at [facility]. For routine questions regarding patient records, call [phone] during business hours, M-F 8:00 AM - 5:00 PM Central Time. Record requests for emergency care only can be directed to [phone] at any time.[facility] Allergies No known active allergies Medications omeprazole (PriLOSEC) [address] capsule Take 20 mg by mouth daily before morning meal. 9 Active albuterol 90 mcg/actuation inhaler Inhale 2 puffs every 6 (six) hours as needed for wheezing or shortness of breath. Active DME CPAP DME Order Active acetaminophen (TylenoL) 500 mg tablet Take 2 tablets (1,000 mg total) by mouth every 6 (six) hours as needed for pain. 5 Active oxyCODONE (Roxicodone) 5 mg immediate release tabletIndicatio ns:Acute Pain Take 1 tablet (5 mg total) by mouth every 4 (four) hours as needed for pain Indication: Acute Pain. 12 tablet 09/28/2024 12:05 PM CDT 5 Active sennosides-docu sate sodium (Senokot-S) 8.6-50 mg per tablet Take 1 tablet by mouth 2 (two) times a day as needed for constipation. To prevent/treat constipation while taking opioid pain medications. Hold for loose stools. 5 Active Active Problems Problem Noted Date Diagnosed Date Pain Postoperative 09/24/2024 Primary Malignant Neoplasm Of Prostate 5 Cancer Staging:Clinical stage from 08/07/2024:Stage IIC(cT2c, cN0, cM0, PSA: 6.7, Grade Group: 3) - Signed by Cass Clark APRN, C.N.PJimbo on 08/12/2024 Pain Low Back Chronic 06/15/2024 Dysfunction Somatic Cervical Region 06/15/2024 Other Dyspnea 08/13/2006 Asthma 08/13/2006 Otitis Media Chronic Serous Right 08/13/2006 Sleep Apnea Unspecified Encounters Date Type Department Care Team Description 12/02/2024 Results Follow-Up Department of Urology in [address] [phone] Chico Bowman M.D. PSA (Prostate-Specific Antigen), Diagnostic 12/01/2024 12:13 PM CDT - 12/01/2024 11:59 PM CDT Hospital Encounter Department of Laboratory Medicine and Pathology, [place], [place] [address] [place] [phone] Mack Morrell M.D. Primary Malignant Neoplasm Of Prostate (HCC) Discharge Disposition: Home or Self Care 11/25/2024 6:45 AM CDT - 11/25/2024 11:59 PM CDT Hospital Encounter Department of Laboratory Medicine and Pathology, [facility] in [place], [place] [address] [place] [phone] Mack Morrell M.D. Primary Malignant Neoplasm Of Prostate (HCC) Discharge Disposition: Home or Self Care 11/03/2024 Clinical Communication Department of Urology in [place], [place] [address] [place] [address] Tae Espitia M.D. After Visit Question from Last 3 Months Family History Medical History Relation Name Comments Liver disease Brother 1 Van [place] Thyroid cancer Brother 1 Van Yonatan Thyroid disease Brother 1 Van Tam Other cancer Brother 2 Yousif Tam [place] m's Prostate cancer Brother 2 Yousif Tam Prostate cancer Brother 3 Coronary artery disease Father Michael Yonatan Hypertension Father Michael Yonatan Dementia Mother Pastora Coronary artery disease Sister Xochitl Tam Hypertension Sister Xochitl Tam Relation Name Status Comments Brother 1 Van Tam Alive Brother 2 Yousif Tam Alive Brother 3 Alive Father Michael Tam Alive Mother Pastora Alive Sister Xochitl Tam Alive Social History Tobacco Use Types Packs/Day Years Used Date Smoking Tobacco: Never Smokeless Tobacco: Never Tobacco Cessation:Counseling Given: Not Answered Alcohol Use Standard Drinks/Week Comments Never 0 (1 standard drink = 0.6 oz pur e alcohol) [facility] Utilities Answer Date Recorded In the past 12 months has e [email or web address], gas, oil, or water [employer] threatened to shut off services in your [...] your living situation today? I have a [facility] place to live 09/24/2024 Sex and Gender Information Value Date Recorded Sex Assigned at Male 06/30/2024 1:58 AM DATA SCIENTIST Legal Sex Male 7:10 AM DATA SCIENTIST Gender Identity Male 06/30/2024 1:58 AM DATA SCIENTIST Sexual Orientation Straight 06/30/2024 1: 58 AM DATA SCIENTIST Last Filed Vital Signs Vital Sign Reading Time Taken Comments Blood Pressure 142/73 09/28/2024 9:02 AM CDT Pulse 71 09/28/2024 9:02 AM CDT Temperature 36.7 C (98.1 F) 09/28/2024 9:02 AM CDT Respiratory Rate 15 09/28/2024 9:02 AM CDT Oxygen Saturation 95% 09/28/2024 9:02 AM CDT Inhaled Oxygen Concentration - - Weight 96 kg (211 lb 10.3 oz) 09/26/2024 5:00 AM CDT Height 172.7 cm (5' 7.99) 09/25/2024 9:06 AM CD T Body Mass Index 32.19 09/25/2024 9:06 AM CDT Plan of Treatment Health Maintenance Due Date Last Done Comments CT Colonography 1950 Cologuard 1950 Colonoscopy 1950 Colorectal Cancer Screening 1950 FIT 1950 Hepatitis C Screening 1950 Pneumococcal vaccine (50+ years) (1 of 2 - PCV) 1970 RSV vaccine - (32-36 weeks) or 60+ years (1 - Risk 60-74 years 1-dose series) 2011 Zoster Vaccines (2 of 3) 07/14/2013 05/19/2013 DTaP,Tdap,and Td Vaccines (2 - Td or Tdap) 08/05/2018 08/05/2008 COVID-19 Vaccine (1 - season) 2024 Depression Screening (Annual PHQ-2) 06/04/2024 Influenza Vaccine (#1) 2025 3, 02/13/2012, 02/28/2011, Additional history exists Fasting Glucose for Diabetes Screening 09/28/2027 09/27/2024, 09/26/2024, 09/24/2024, Additional history exists Fall Risk Screen (Annual) Completed 09/22/2024 IPV Vaccines Aged Out No longer eligi ble based on patient's age to complete this topic Medical Devices Implanted Type Area Director Biostatistics Device Identifier Shelf Expiration Date Model / Serial / Lot Clp Hmol Plmr Lg - [id number] Implanted:Qty : 1 on 09/22/2024 by Tae Espitia M.D. at [facility] Hardware e.g. pins/screws/ rods [employer] [id number] 06/19/2029 [id number] / / [id number] Clp Hmol Plmr Lg - [id number] Implanted:Qty : 1 on 09/22/2024 by Tae Espitia M.D. at [facility] Hardware e.g. pins/screws/ rods [employer] [id number] 06/19/2029 [id number] / / [id number] Procedures Procedure Name Priority Date/Time Associated Diagnosis Comments PROSTATE-SPECIFIC AG (PSA) DIAGNOSTIC, S Routine 12/01/2024 12:19 PM CDT Primary Malignant Neoplasm Of Prostate (HCC) BASIC METABOLIC PANEL, S/P Routine 09/27/2024 3:35 AM CDT from Last 3 Months or Most Recently Relevant to Health Maintenance Results * PSA (Prostate-Specific Antigen), Diagnostic (12/01/2024 12:19 PM CDT) Prostate-Specific Ag <0.10 <=6.5 ng/mL 12/01/2024 1:37 PM CDT DTL Comment: ----ADDITIONAL INFORMATION---- The testing method is an electrochemiluminescence assay manufactured by [employer] and performed on the Modular or Preeti system. Values obtained with different assay methods or kits may be different and cannot be used interchangeably. Test results cannot be interpreted as absolute evidence for the presence or absence of malignant disease. Blood (Blood, Venous) 12/01/2024 12:19 PM CDT 12/01/2024 1:07 PM CDT us Mack Morrell M.D. LAB BLOOD ADD-ON Final Resu lt [facility] [address] [place], [place] [address] DTL [facility] [address] [place] [address] * (ABNORMAL) Basic Metabolic Panel (09/27/2024 3:35 AM CDT) Pathologist [facility] Potassium, S 4.0 3.6 - 5.2 mmol/L 09/27/2024 4:20 AM CDT DTL Sodium, S 137 135 - 145 mmol/L 09/27/2024 4:20 AM CDT DTL Chloride, S 103 98 - 107 mmol/L 09/27/2024 4:20 AM CDT DTL Bicarbonate, S 26 22 - 29 mmol/L 09/27/2024 4:20 AM CDT DTL Anion Gap 8 7 - 15 09/27/2024 4:20 AM CDT DTL BUN (Blood Urea Nitrogen), S 20 8 - 24 mg/dL 09/27/2024 4:20 AM CDT DTL Creatinine 1.28 0.74 - 1.35 mg/dL 09/27/2024 4:20 AM CDT DTL Estimated GFR (eGFR) 59(L) >=60 mL/min/BSA 09/27/2024 4:20 AM CDT DTL Comment: Estimated GFR calculated using the 2020 CKD_EPI creatinine equation. Calcium, Total, S 8.5(L) 8.8 - 10.2 mg/dL 09/27/2024 4:20 AM CDT DTL Glucose, S 101 70 - 140 mg/dL 09/27/2024 4:20 AM CDT DTL Blood (Blood, Venous) 09/27/2024 3:35 AM CDT 09/27/2024 3:55 AM CDT us Nisreen Robertson M.D. LAB BLOOD ADD-ON Final Res ult [facility] [address] [place] [address], [facility] DTL [facility] [address] [place] [address] from Last 3 Months or Most Recently Relevant to Health Maintenance Insurance [facility] MEDIC[facility] Advance Directives For more information, please contact: [phone] * Full Code (Latest Code Status on File) Date Activated Date Inactivated Comments 09/22/2024 5:29 PM 09/23/2024 2:50 PM Question Answer Comments Full Code: Discussed Care Teams Supervisor Game Farm Relationship Specialty Start Date End Date Elsewhere, Pcp PCP - General Internal Medicine 09/24/24
--- NOTE | 2025-01-07 21:19 | CRLHL7_ITS ---
For Patients: As a result of the Cures Act, medical imaging exams and procedure reports are released immediately into your electronic medical record. You may view this report before your referring provider. If you have questions, please contact your health care provider. Indication: Shortness of breath, fever, and chest pain. Technique: Two views of the chest. Comparison: Chest x-ray 06/29/2024. Findings/Impression: Patchy bibasilar airspace opacification may be indicative of multifocal infectious/inflammatory process. The heart is not abnormally enlarged. No pleural effusion or pneumothorax. No acute osseous abnormality. Dictated by Rob Joseph MD @ 01/07/2025 9:45:20 PM (Electronically Signed)
[2025-01-07 21:36] LABS: Hematocrit 41.8 % (37.0-53.0); Hemoglobin* 14.0 gm/dL (13.5-17.5); Immature Granulocytes Pct Auto 0.4 %; Mean Corpuscular HGB Conc 34 gm/dL (32-36); Mean Corpuscular Hemoglobin 30 pg (26-34); Mean Corpuscular Volume 91 fL (80-100); RDW Coefficient of Variation % 14.9 % (11.5-15.5); Red Blood Count 4.61 m/uL (4.30-5.90); White Blood Count* 19.89 K/uL (4.50-11.00)
--- NOTE | 2025-01-07 21:39 | ED.SOB ---
HPI - SOB/Dyspnea General Time Seen by Provider: 21:39 Date Seen: 01/07/25 Chief Complaint: Shortness of Breath/Dyspnea Stated Complaint: tightness of chest/fever Time Seen by Provider: 01/07/25 21:20 Source: patient Mode of arrival: ambulatory History of Present Illness HPI Narrative: Peyman is a 74-year-old male with a past medical history of asthma who presents to the emergency department for evaluation of fever, shortness of breath. Patient reports that since last Sunday he has had dry cough, shortness of breath, and some tightness in his chest. Patient states he has been using inhaler albuterol and Flovent to help with symptoms. Patient reports he was restarted on prednisone back on Sunday with no improvement of symptoms. Patient states that veronica developed a fever and had ongoing chest tightness so came in for evaluation. Patient reports that approximately 1 month ago he had similar episodes in which he thought his asthma was flaring up and was treated with prednisone. Patient states that he felt better for about a week and a half until symptoms restarted. Patient denies any sick contacts, no other complaints. Related Data Home Medications ?Medication ?Instructions ?Recorded ?Confirmed meclizine 25 mg tablet 25 mg PO TID PRN 06/16/24 12/09/24 sennosides 8.6 mg tablet (senna) 8.6 mg PO QDAY 10/03/24 12/09/24 acetaminophen 500 mg tablet 1,000 mg PO Q6H PRN 12/09/24 12/09/24 Previous Rx's ?Medication ?Instructions ?Recorded omeprazole 20 mg capsule,delayed 20 mg PO DAILY #90 caps 08/11/24 release albuterol sulfate 90 mcg/actuation 2 puff inhalation Q4-6H PRN 12/09/24 aerosol inhaler shortness of breath or wheezing #8.5 grams fluticasone furoate 100 1 inh inhalation Q24H #30 ea 12/12/24 mcg/actuation blister powder for inhalation (Arnuity Ellipta) prednisone 20 mg tablet 10 - 40 mg (0.5 - 2 x 20 mg) PO 01/05/25 QDAY #14 tabs Allergies Allergy/AdvReac Type Severity Reaction Status Date / Time house dust Allergy Unknown Verified 12/09/24 09:56 Review of Systems Narrative: Past medical history, past surgical history, medications, allergies, family history, and social history were reviewed with the patient. No additional pertinent items. A medically appropriate review of systems was performed with pertinent positives and negatives noted in HPI, all other systems negative. 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) Acute blood loss anemia (06/12/24) ?D62 - Acute posthemorrhagic anemia (ICD-10) Osteoporosis ?M81.0 - Age-related osteoporosis without current pathological fracture (ICD-10) Degenerative joint disease of cervical spine ?M47.812 - Spondylosis without myelopathy or radiculopathy, cervical region (ICD-10) Mild intermittent asthma ?J45.20 - Mild intermittent asthma, uncomplicated (ICD-10) Diverticulosis ?K57.90 - Diverticulosis of intestine, part unspecified, without perforation or abscess without bleeding (ICD-10) GERD (gastroesophageal reflux disease) ?K21.9 - Gastro-esophageal reflux disease without esophagitis (ICD-10) Tear of medial meniscus of right knee ?S83.241A - Other tear of medial meniscus, current injury, right knee, initial encounter (ICD-10) Osteoarthritis of right knee ?M17.11 - Unilateral primary osteoarthritis, right knee (ICD-10) 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 (ICD-10) GERARDO (obstructive sleep apnea) ?G47.33 - Obstructive sleep apnea (adult) (pediatric) (ICD-10) Lumbar transverse process fracture (03/18/10) ?S32.009A - Unspecified fracture of unspecified lumbar vertebra, initial encounter for closed fracture (ICD-10) Environmental allergies (03/18/10) ?Z91.09 - Other allergy status, other than to drugs and biological substances (ICD-10) Surgical History History of robot-assisted laparoscopic radical prostatectomy (09/22/24) ?Z90.79 - Acquired absence of other genital organ(s) (ICD-10) Family History Father Heart disease High blood pressure Social History Narrative: , 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, 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, 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, no EtOH What is your current living situation?: I presently have a place to live Problems where you live: no known problems Problems where you live details: n/a In the past 12 months, utilities in danger of being shut off: no In past 12 months, lack of transportation kept you from medical appts, meetings, work, or getting things needed for daily living: no In the past 12 mos, have been you worried that your food would run out before you had money to buy more?: never true In the past 12 mos, the food you bought just didn't last and you didn't have money to buy more?: never true Highest level of school completed/degree received: GED or equivalent Smoking Status: Never smoker Do you use any of these nicotine containing products: None Second hand tobacco smoke exposure: No How often do you have a drink containing alcohol: never How often do you have six or more drinks on one occasion: Never AUDIT-C Alcohol total score: 0 Non-prescribed substance use: denies use Caffeine: Yes How often does anyone, including family, friends and others, physically hurt you: never How often does anyone, including family, friends and others, insult or talk down to you: never How often does anyone, including family, friends and others, threaten you with harm: never How often does anyone, including family, friends and others, scream or curse at you: never Exam Narrative: Exam Narrative: General: Temperature 99.8?, in distress HEENT: Normocephalic, atraumatic, conjunctiva normal. MMM Neck: non-tender, supple Cardio: regular rate. regular rhythm Resp: Mild increase work of breathing, mild respiratory distress, bibasilar rales, few scattered rhonchi Chest/Back: no visual signs of trauma, no midline tenderness, no CVA tenderness Abdomen: soft, non distension, no tenderness, no peritoneal signs Neuro: alert and fully oriented. CN II-XII grossly intact. Grossly normal strength and sensation in all extremities. MSK: no deformities. Normal range of motion, no lower extremity edema or calf tenderness Integumentary/Skin: no rash visualized, normal color Psych: normal affect, normal behavior Const: Vital Signs, click to edit/add: Vital Signs - 24 hr 01/07/25 21:19 01/07/25 21:20 01/07/25 21:34 Temperature 99.8 F H Pulse Rate 83 Pulse Rate [Pulse Oximeter] 87 Respiratory Rate 20 22 Blood Pressure 167/88 H Blood Pressure [Ri ght Upper Arm] 180/80 H Pulse Oximetry 91 91 91 Oxygen Delivery Me thod Room Air 01/07/25 21:52 01/07/25 22:01 01/07/25 22:06 Temperature 99.8 F H Pulse Rate 84 Pulse Rate [Pulse Oximeter] 98 Respiratory Rate 20 22 Blood Pressure 159/88 H Blood Pressure [Ri ght Upper Arm] Pulse Oximetry 91 87 L Oxygen Delivery Me thod Room Air Room Air 01/07/25 22:45 Temperature Pulse Rate 85 Pulse Rate [Pulse Oximeter] Respiratory Rate 20 Blood Pressure Blood Pressure [Ri ght Upper Arm] Pulse Oximetry 90 Oxygen Delivery Me thod Room Air Course Vital Signs Vital signs: Initial Vital Signs Temperature 99.8 F H 01/07/25 21:19 Temperature Source Temporal Artery Scan 01/07/25 21:19 Pulse Rate 87 01/07/25 21:19 Respiratory Rate 20 01/07/25 21:19 Respiratory Effort Normal, Spontaneous, Non-Labored 01/07/25 21:19 Respiratory Depth Normal 01/07/25 21:19 Respiratory Pattern Normal 01/07/25 21:19 Blood Pressure 180/80 H 01/07/25 21:19 Blood Pressure Mean 113 H 01/07/25 21:19 Blood Pressure Position Sitting 01/07/25 21:19 Pulse Oximetry 91 01/07/25 21:19 Oxygen Delivery Method Room Air 01/07/25 21:19 Vital Signs Temperature 99.8 F H 01/07/25 21:19 Pulse Rate 87 01/07/25 21:19 Respiratory Rate 20 01/07/25 21:19 Blood Pressure 180/80 H 01/07/25 21:19 Pulse Oximetry 91 01/07/25 21:19 Oxygen Delivery Method Room Air 01/07/25 21:19 Temperature 97.4 F L 01/08/25 02:39 Pulse Rate 74 01/08/25 02:39 Respiratory Rate 14 01/08/25 02:39 Blood Pressure 119/71 01/08/25 02:39 Pulse Oximetry 91 01/08/25 02:39 Oxygen Delivery Method Room Air 01/08/25 02:39 Medications Administered Medications: Generic Name Dose Route Start Last Admin Trade Name Freq PRN Reason Stop Dose Admin Enoxaparin Sodium 40 mg 01/07/25 23:28 01/08/25 00:13 Enoxaparin 40 Mg/0.4 Ml Inj SUBCUT 40 mg HS SARAHI Administration Ondansetron HCl 4 mg 01/07/25 23:28 01/07/25 23:36 Ondansetron 2 Mg/Ml Inj IVP 4 mg Q4H PRN Administration Nausea Discontinued Medications Generic Name Dose Route Start Last Admin Trade Name Freq PRN Reason Stop Dose Admin Albuterol/Ipratropium 1 neb 01/07/25 21:48 01/07/25 21:52 Iprat-Albut 0.5-2.5 Mg/3 Ml Neb IH 01/07/25 21:49 1 neb ONCE ONE Administration Doxycycline Hyclate 100 mg 01/07/25 22:19 01/07/25 22:29 Doxycycline Hyclate 100 Mg PO 01/07/25 22:20 100 mg ONCE ONE Administration Ceftriaxone Sodium 1 gm/ 100 mls @ 200 mls/hr 01/07/25 22:19 01/07/25 23:05 Sodium Chloride IVPB 01/07/25 22:20 Infused ONCE ONE Infusion Ibuprofen 600 mg 01/07/25 21:48 01/07/25 21:52 Ibuprofen 200 Mg Tablet PO 01/07/25 21:49 600 mg ONCE ONE Administration MDM - SOB/Dyspnea MDM Narrative Medical decision making narrative: Peyman is a 74-year-old male with a past medical history of asthma who presents to the emergency department for evaluation of fever, shortness of breath. Upon arrival patient is ill but nontoxic appearing, low-grade fever 99.8, hypertensive upon arrival 180/80, heart rate 87, oxygen 91% on room air. Patient in mild respiratory distress. Differential diagnosis includes but is not limited to asthma versus bronchitis versus pneumonia versus COVID/influenza/RSV versus viral illness versus CHF versus pneumothorax among others. Upon arrival patient was treated with DuoNeb, patient currently on steroids and took his dose today. I reviewed comprehensive labs which are remarkable for leukocytosis with left that cell count 19.89, hemoglobin 14, no acute metabolic or electrolyte abnormality, B and P normal 53, D-dimer normal, viral testing negative for COVID, flu, RSV. I-STAT troponin negative. I reviewed EKG which demonstrates normal sinus rhythm with a ventricular rate of 84 beats per minute, QTC 420, normal axis, no acute ischemic change. I personally viewed interpreted chest x-ray which demonstrates patchy bibasilar airspace opacifications suggestive of multifocal infectious/inflammatory process. Given patient's worsening symptoms fever, cough, shortness of breath, leukocytosis, chest x-ray finding I discussed results with patient and spouse. At this time will treat for community-acquired pneumonia with ceftriaxone and doxycycline. Patient with oxygen saturations at rest 89-91%, with ambulation oxygen drops down into the mid upper 80s. I discussed patient management with hospitalist who agrees with admission. Patient understands and agrees with the plan. Medical Records Attestation: I reviewed the patient's medical records. Lab Data Attestation: I reviewed the patient's lab results. Labs: Lab Results 01/07/25 01/07/25 Range/Units 21:19 21:28 WBC 19.89 H (4.50-11.00) K/uL RBC 4.61 (4.30-5.90) m/uL Hgb 14.0 (13.5-17.5) gm/dL Hct 41.8 (37.0-53.0) % MCV 91 (80-100) fL MCH 30 (26-34) pg MCHC 34 (32-36) gm/dL RDW Coeff of Mk 14.9 (11.5-15.5) % Plt Count 454 H (140-440) K/uL Neut % (Auto) 83.7 H (42.0-72.0) % Lymph % (Auto) 8.1 L (20-44) % [place] % (Auto) 7.5 (0.0-11.0) % Eos % (Auto) 0.0 (0.0-7.0) % Baso % (Auto) 0.3 (0.0-3.0) % Neut # (Auto) 16.60 H (1.7-7.0) K/uL Lymph # (Auto) 1.60 (0.90-2.90) K/uL [place] # (Auto) 1.50 H (0.00-0.90) K/UL Eos # (Auto) 0.00 (0.00-0.50) K/uL Baso # (Auto) 0.10 (0.00-0.30) K/uL Abs Immat Gran (auto) 0.10 (0.00-0.30) K/uL Imm/Tot Granulo (auto) 0.4 % D-Dimer Quant (PE/DVT) < 0.27 (0.00-0.50) ug/ml Sodium 136 (135-149) mmol/L Potassium 4.0 (3.6-5.1) mmol/L Chloride 104 (96-114) mmol/L Carbon Dioxide 24 (20-32) mmol/L Anion Gap 8 (7-15) mEq/L BUN 20 (7-30) mg/dL Creatinine 1.1 (0.5-1.5) mg/dL Estimated Creat Clear 57.86 Estimated GFR 71 ml/min Glucose 109 (60-115) mg/dL Lactate 1.0 (0.5-1.9) mmol/L Calcium 9.4 (8.4-10.6) mg/dL Total Bilirubin 0.8 (0.1-1.5) mg/dL AST 28 (12-35) U/L ALT 26 (4-50) U/L Alkaline Phosphatase 70 (40-150) U/L NT-Pro-B Natriuret Pep 53 (See Note) pg/mL Total Protein 7.0 (6.0-8.3) g/dL Albumin 3.9 (3.3-5.0) g/dL SARS-CoV-2 (PCR) Negative SARS-CoV-2 (Negative) Influenza Type A (PCR) Negative PCR FLU A (Negative) Influenza Type B (PCR) Negative PCR FLU B (Negative) RSV (PCR) Negative PCR RSV (Negative) POC Troponin I 0.00 L (0.01-0.04) ng/ml Critical Care Time Critical Care Time Critical Care Time: Yes Attestation: The patient required my highest level preparedness to intervene emergently and I personally spent this critical care time directly and personally managing the patient. This critical care time included: Obtaining a history; Examining the patient; Pulse oximetry; Ordering and reviewing of studies; Arranging urgent treatment with development of a management plan; Evaluation of patients response to treatment; Frequent reassessment discussions with other providers. This critical care time was performed to assess and manage the high probability of imminent life-threatening deterioration that could result in multiorgan failure. It was exclusive of separate billable procedures and treating other patients and teaching time. Total Critical Care Time in Minutes: 45 Discharge Plan Discharge Clinical Impression: Pneumonia, Fever, Hypoxia, Breath shortness Patient Disposition: Admitted As Observation Condition: Stable
[2025-01-07 21:40] LABS: Immature Granulocytes Abs Auto 0.10 K/uL (0.00-0.30); Lymphocytes Absolute Auto 1.60 K/uL (0.90-2.90)
[2025-01-07 21:40] LABS: Troponin, Point-of-Care* 0.00 ng/ml (0.01-0.04)
[2025-01-07 21:41] LABS: Slide Review Reflex No
[2025-01-07 21:48] LABS: Albumin* 3.9 g/dL (3.3-5.0); Chloride* 104 mmol/L (96-114)
[2025-01-07 21:49] LABS: Potassium* 4.0 mmol/L (3.6-5.1); Sodium* 136 mmol/L (135-149)
[2025-01-07 21:51] LABS: Anion Gap 8 mEq/L (7-15); Blood Urea Nitrogen* 20 mg/dL (7-30); Carbon Dioxide* 24 mmol/L (20-32); Creatinine* 1.1 mg/dL (0.5-1.5); Est. Creatinine Clearance* 57.86; Estimated Glomerular Filt Rate 71 ml/min
[2025-01-07 21:52] LABS: Alanine Aminotransferase* 26 U/L (4-50); Aspartate Amino Transferase* 28 U/L (12-35); Calcium* 9.4 mg/dL (8.4-10.6); Glucose* 109 mg/dL (60-115); Total Protein* 7.0 g/dL (6.0-8.3)
[2025-01-07] MEDS: IPRAT-ALBUT 0.5-2.5 MG/3 ML NEB 1 NEB IH (21:52)
[2025-01-07] MEDS: IBUPROFEN 200 MG TABLET 600 MG PO (21:52)
[2025-01-07 22:14] LABS: PCR FLU A Negative PCR FLU A (Negative); PCR FLU B Negative PCR FLU B (Negative); PCR RSV Negative PCR RSV (Negative); SARS PCR* Negative SARS-CoV-2 (Negative)
[2025-01-07 22:18] LABS: Lactate* 1.0 mmol/L (0.5-1.9)
[2025-01-07 22:23] LABS: Alkaline Phosphatase* 70 U/L (40-150); Bilirubin Total* 0.8 mg/dL (0.1-1.5)
[2025-01-07] MEDS: DOXYCYCLINE HYCLATE 100 MG PO (22:29)
[2025-01-07] MEDS: cefTRIAXone 1 GM in 0.9 % SODIUM CHLORIDE Mini-bag 100 ML IVPB (22:29)
[2025-01-07 22:36] LABS: D Dimer Quantitative* < 0.27 ug/ml (0.00-0.50); NT Pro B Type NatriureticPept* 53 pg/mL (See Note)
--- NOTE | 2025-01-07 23:28 | PM.IMHP1 ---
Assessment and Plan Assessment and plan (1) Community acquired pneumonia: Problem comment: - ceftriaxone IV and doxycycline orally Status: Acute (2) Acute respiratory failure with hypoxia: Problem comment: - treat pneumonia and asthma - monitor and treat O2 needs - respiratory therapy to assist Status: Acute (3) Asthma exacerbation: Problem comment: - burst dose of oral steroids - nebulized budesonide 0.5 mg twice daily - scheduled ipratropium bromide and albuterol nebulization - albuterol nebulization as needed - discussed added risk for asthma exacerbation with dangerous air quality from particulate matter from [place] wildfires Status: Acute Plan 1. Reviewed impression, plan, recommendations with patient and 2. Answered their questions 3. Continue with supportive efforts 4. They are agreeable with above stated plans and recommendations Total Time Spent Total Time Spent: 65 minutes Hospitalist- H&P: HPI History of Present Illness Date Seen: 01/07/25 Chief complaint: tightness of chest/fever Narrative: Tim Tam is a 74 year old man presents with a 3-5 day history of increasing dry hacky cough, chest tightness, and today started with fever with temperature at home as high as 101? F. Additionally, has had transient myalgias and arthralgias with the fever. Has had mild asthma intermittently over the years. This year it has been particularly problematic for him with symptoms for nearly the past 2 months. Ordinarily uses albuterol rescue inhaler for maybe a week odd of the year. This year has been using it fairly steady since early December. Treated with that burst prednisone therapy mid December. Symptoms seemed to improve at that time. In the last 3-5 days the symptoms have worsened significantly and he was restarted on another dose of prednisone about 3 days ago by his primary care physician for presumed asthma exacerbation again. Review of Systems Status of ROS: Reports: 6 or more systems reviewed and unremarkable except as noted in History and below Narrative: Denies cardiac symptoms aside from what is specified above. Since his radical prostatectomy about 3-4 months ago he has had more episodes of stress bladder incontinence. Denies gastrointestinal symptoms. Ordinarily very active and enjoys golfing 18 holes at least 2 times weekly. More short of breath the last 3-5 days and has not been able to golf this week. Denies rigors or diaphoresis. No recent travel or trauma. 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) (ICD-10) Acute blood loss anemia (06/12/24) ?D62 - Acute posthemorrhagic anemia (ICD-10) Osteoporosis ?M81.0 - Age-related osteoporosis without current pathological fracture (ICD-10) Degenerative joint disease of cervical spine ?M47.812 - Spondylosis without myelopathy or radiculopathy, cervical region (ICD-10) Mild intermittent asthma ?J45.20 - Mild intermittent asthma, uncomplicated (ICD-10) Diverticulosis ?K57.90 - Diverticulosis of intestine, part unspecified, without perforation or abscess without bleeding (ICD-10) GERD (gastroesophageal reflux disease) ?K21.9 - Gastro-esophageal reflux disease without esophagitis (ICD-10) Tear of medial meniscus of right knee ?S83.241A - Other tear of medial meniscus, current injury, right knee, initial encounter (ICD-10) Osteoarthritis of right knee ?M17.11 - Unilateral primary osteoarthritis, right knee (ICD-10) 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 (ICD-10) GERARDO (obstructive sleep apnea) ?G47.33 - Obstructive sleep apnea (adult) (pediatric) (ICD-10) Lumbar transverse process fracture (03/18/10) ?S32.009A - Unspecified fracture of unspecified lumbar vertebra, initial encounter for closed fracture (ICD-10) Environmental allergies (03/18/10) ?Z91.09 - Other allergy status, other than to drugs and biological substances (ICD-10) Surgical History History of robot-assisted laparoscopic radical prostatectomy (09/22/24) ?Z90.79 - Acquired absence of other genital organ(s) (ICD-10) Family History Father Heart disease High blood pressure Social History Narrative: , 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, 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, 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, 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 What is your current living situation?: I presently have a place to live Problems where you live: no known problems Problems where you live details: n/a In the past 12 months, utilities in danger of being shut off: no In past 12 months, lack of transportation kept you from medical appts, meetings, work, or getting things needed for daily living: no In the past 12 mos, have been you worried that your food would run out before you had money to buy more?: never true In the past 12 mos, the food you bought just didn't last and you didn't have money to buy more?: never true Highest level of school completed/degree received: GED or equivalent Smoking Status: Never smoker Do you use any of these nicotine containing products: None Second hand tobacco smoke exposure: No How often do you have a drink containing alcohol: never How often do you have six or more drinks on one occasion: Never AUDIT-C Alcohol total score: 0 Non-prescribed substance use: denies use Caffeine: Yes How often does anyone, including family, friends and others, physically hurt you: never How often does anyone, including family, friends and others, insult or talk down to you: never How often does anyone, including family, friends and others, threaten you with harm: never How often does anyone, including family, friends and others, scream or curse at you: never Meds Home Medications and Allergies Home Medications ?Medication ?Instructions ?Recorded ?Confirmed ?Type meclizine 25 mg tablet 25 mg PO TID PRN 06/16/24 12/09/24 History omeprazole 20 mg capsule,delayed 20 mg PO DAILY #90 caps 08/11/24 12/09/24 Rx release sennosides 8.6 mg tablet (senna) 8.6 mg PO QDAY 10/03/24 12/09/24 History acetaminophen 500 mg tablet 1,000 mg PO Q6H PRN 12/09/24 12/09/24 History albuterol sulfate 90 mcg/actuation 2 puff inhalation Q4-6H PRN 12/09/24 12/09/24 Rx aerosol inhaler shortness of breath or wheezing #8.5 grams fluticasone furoate 100 1 inh inhalation Q24H #30 ea 12/12/24 Rx mcg/actuation blister powder for inhalation (Arnuity Ellipta) prednisone 20 mg tablet 10 - 40 mg (0.5 - 2 x 20 mg) PO 01/05/25 Rx QDAY #14 tabs Allergies Allergy/AdvReac Type Severity Reaction Status Date / Time house dust Allergy Unknown Verified 12/09/24 09:56 Exam Narrative: Exam Narrative: Examine him in the emergency department. He is laying in his exam table with head of bed elevated 60? and legs outstretched in front of him. Resting respiratory rate 22-24 as I am examining him. Oxygen saturations on room air ranging from 88-90 as I am visiting with him. With movement to saturation drops down to 86-87% and his respiratory rate increases up to 28. Friendly, articulate, cooperative. Vision and hearing are adequate. Dry buccal mucosa with dentition in good repair. Tympanic membranes normal. Neck is supple. Midline trachea. No head neck lymphadenopathy. On auscultation of his lungs he has bibasilar rales, right greater than left. Few scattered rhonchi that clear with cough. No real wheezing. Chest wall excursions are full. No CVA tenderness. Heart tones with regular rhythm, normal S1-S2. No murmur, gallop, rub. PMI not laterally displaced. Abdomen with active bowel sounds, soft, nontender. No organomegaly or masses. No rebound or guarding. Independent with transfer, station, gait. No focal motor neurologic deficits. Skin is warm, dry, intact. Const: Vital Signs, click to edit/add: Vital Signs - 24 hr 01/07/25 21:19 01/07/25 21:20 01/07/25 21:34 Temperature 99.8 F H Pulse Rate 83 Pulse Rate [Pulse Oximeter] 87 Respiratory Rate 20 22 Blood Pressure 167/88 H Blood Pressure [Ri ght Upper Arm] 180/80 H Pulse Oximetry 91 91 91 Oxygen Delivery Me thod Room Air 01/07/25 21:52 01/07/25 22:01 01/07/25 22:06 Temperature 99.8 F H Pulse Rate 84 Pulse Rate [Pulse Oximeter] 98 Respiratory Rate 20 22 Blood Pressure 159/88 H Blood Pressure [Ri ght Upper Arm] Pulse Oximetry 91 87 L Oxygen Delivery Ne thod Room Air Room Air 01/07/25 22:45 Temperature Pulse Rate 85 Pulse Rate [Pulse Oximeter] Respiratory Rate 20 Blood Pressure Blood Pressure [Ri ght Upper Arm] Pulse Oximetry 90 Oxygen Delivery Ne thod Room Air Hospitalist - H&P: Result Labs Labs: Short CBC 01/07/25 Range/Units 21:28 WBC 19.89 H (4.50-11.00) K/uL Hgb 14.0 (13.5-17.5) gm/dL Hct 41.8 (37.0-53.0) % Plt Count 454 H (140-440) K/uL BMP 01/07/25 21:28 Sodium 136 Potassium 4.0 Chloride 104 Carbon Dioxide 24 BUN 20 Creatinine 1.1 Glucose 109 Calcium 9.4 Liver Function 01/07/25 Range/Units 21:28 Total Bilirubin 0.8 (0.1-1.5) mg/dL AST 28 (12-35) U/L ALT 26 (4-50) U/L Alkaline Phosphatase 70 (40-150) U/L Albumin 3.9 (3.3-5.0) g/dL ECG ECG interpretation date: 01/07/25 Interpretation: Normal sinus rhythm. No infarction or ischemic changes. Imaging Chest x-ray: Attestation: I have reviewed the pertinent imaging results. Radiologist's impression: Bibasilar, posterior infiltrates concerning for pneumonia.
[2025-01-07] MEDS: ONDANSETRON 2 MG/ML inj 4 MG IVP (23:36)
[2025-01-08] MEDS: ENOXAPARIN 40 MG/0.4 ML INJ SUBCUT (00:13)
[2025-01-08 02:39] VITALS: BP 119/71; PULSE 74; RESP 14; TEMP 36.3; O2SAT 91
[2025-01-08] MEDS: IPRAT-ALBUT 0.5-2.5 MG/3 ML NEB 1 NEB IH ×2 (04:23→09:51)
[2025-01-08 06:39] LABS: Hematocrit 41.0 % (37.0-53.0); Hemoglobin* 13.6 gm/dL (13.5-17.5); Mean Corpuscular HGB Conc 33 gm/dL (32-36); Mean Corpuscular Hemoglobin 30 pg (26-34); Mean Corpuscular Volume 91 fL (80-100); Red Blood Count 4.49 m/uL (4.30-5.90); White Blood Count* 16.55 K/uL (4.50-11.00)
[2025-01-08 06:45] LABS: Slide Review Reflex No
[2025-01-08 07:00] VITALS: BP 139/70; PULSE 72; RESP 18; TEMP 36.7; O2SAT 93
[2025-01-08 07:01] LABS: HCO3 VBG 28 mmol/L (21-28); PCO2 VBG 47 mmHG (40-50); PO2 VBG 37.5 mmHG (25-47); pH VBG 7.381 (7.32-7.43)
--- NOTE | 2025-01-08 07:11 | PC.NURSE ---
End of shift: Pt arrived at 2320. Pleasent, alert and oriented. VSS. Pt 95% and above on RA throughout shift. Around 0500 pt called and stated feeling SOB, O2 sats 96%, IS provided and pt stated improvement. Upon arrival, pt had an episode of nausea and dry heaving, no emesis, prn Zofran given. Pt stated feeling better within half hour and was able to eat some crackers, tolerated well. Denied nausea the rest of shift. 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 Pt up independently, tolerated well. Pt in bed, appears to be resting, call light within reach.???
[2025-01-08 07:27] LABS: Chloride* 105 mmol/L (96-114); Potassium* 4.1 mmol/L (3.6-5.1); Sodium* 136 mmol/L (135-149)
[2025-01-08 07:30] LABS: Anion Gap 2 mEq/L (7-15); Blood Urea Nitrogen* 21 mg/dL (7-30); Calcium* 9.1 mg/dL (8.4-10.6); Carbon Dioxide* 29 mmol/L (20-32); Creatinine* 1.1 mg/dL (0.5-1.5); Est. Creatinine Clearance* 57.86; Estimated Glomerular Filt Rate 71 ml/min; Glucose* 93 mg/dL (60-115)
[2025-01-08 07:37] LABS: Lactate* 1.0 mmol/L (0.5-1.9)
[2025-01-08 08:02] LABS: Procalcitonin* 0.12 ng/mL (<0.50)
[2025-01-08] MEDS: DOXYCYCLINE HYCLATE 100 MG PO (08:47)
[2025-01-08] MEDS: OMEPRAZOLE 20 MG CAPSULE DR PO (08:47)
[2025-01-08] MEDS: SENNOSIDES 1 TAB TABLET PO (08:47)
[2025-01-08] MEDS: SODIUM CHLORIDE 0.9 % (FLUSH) 10 ML SYRINGE 5 ML IVF (08:47)
[2025-01-08] MEDS: BUDESONIDE 0.5 MG/2ML NEB NEB (08:47)
--- NOTE | 2025-01-08 09:36 | RESP.RT ---
Patient is currently on RA and resting comfortably. Patient states that he wears CPAP each night, but did not bring it into the hospital, however he states that someone can bring in his CPAP if he stays another night.
[2025-01-08 10:16] VITALS: BP 137/73; PULSE 69; RESP 18; TEMP 36.5; O2SAT 92
--- NOTE | 2025-01-08 11:31 | PM.DS1 ---
DS: Providers Provider Date Seen: 01/08/25 Date of admission: 01/07/25 23:29 Primary care physician: Yousif Dalton MD Admitting Clinician: Josiah Ocampo MD Consults: 01/07/25 23:28 Consult to Respiratory Therapy [CONS] Routine Comment: Reason(s) for RT Consult:: Consult Attending Physician on discharge: LEROY AKERS, [facility] Date of Discharge: 01/08/25 DS: Diagnosis Discharge Diagnosis (1) Community acquired pneumonia: Status: Acute Problem details: - ceftriaxone IV and doxycycline orally Prior to discharge, leukocytosis improving, remains afebrile. Will discharge on oral doxycycline. Outpatient follow-up with PCP. Understands return to ED if new or worsening symptoms. (2) Acute respiratory failure with hypoxia: Status: Resolved Problem details: - treat pneumonia and asthma - monitor and treat O2 needs - respiratory therapy to assist Resolved prior to discharge. Ambulating in hallways, maintaining oxygen saturations > 92%. Assessed by respiratory therapy, no further acute needs identified. Encouraged to continue with CPAP at nighttime. (3) Asthma exacerbation: Status: Acute Problem details: - burst dose of oral steroids - nebulized budesonide 0.5 mg twice daily - scheduled ipratropium bromide and albuterol nebulization - albuterol nebulization as needed - discussed added risk for asthma exacerbation with dangerous air quality from particulate matter from [place] wildfires Agree with exacerbation in setting of acute pneumonia as well as recent significant poor air quality. Continue home inhalers and oral steroids. Continue use of incentive spirometry. Outpatient follow-up with PCP. DS: Summary Hospital Course Hospital Course: Course of care and details as noted above. Community-acquired pneumonia and asthma exacerbation with hypoxia, improving prior to discharge. Will continue on oral doxycycline as well as steroids. Continue CPAP at bedtime. Encouraged to remain indoors during ongoing poor air quality warnings. Remainder of chronic medical comorbidities were monitored and managed with home medications. Status at Discharge Functional status at discharge: independent ambulation Overall status at discharge: patient is back to baseline Time Spent with Patient Time attestation: Total time spent providing and/or coordinating discharge services: Time spent: Greater than 30 minutes Exam Narrative: Exam Narrative: PHYSICAL EXAM General: Pleasant, conversant, NAD Cardiovascular: RRR Pulmonary: CTA bilaterally without rhonchi or expiratory wheezes, no dyspnea. Coarse cough appreciated Neurological: Alert, answering questions appropriately Skin: Warm, dry. Const: Vital Signs, click to edit/add: Vital Signs - 24 hr 01/07/25 21:19 01/07/25 21:20 01/07/25 21:34 Temperature 99.8 F H Pulse Rate 83 Pulse Rate [Pulse Oximeter] 87 Respiratory Rate 20 22 Blood Pressure 167/88 H Blood Pressure [Ri ght Arm] Blood Pressure [Ri ght Upper Arm] 180/80 H Pulse Oximetry 91 91 91 Oxygen Delivery Nv thod Room Air 01/07/25 21:52 01/07/25 22:01 01/07/25 22:06 Temperature 99.8 F H Pulse Rate 84 Pulse Rate [Pulse Oximeter] 98 Respiratory Rate 20 22 Blood Pressure 159/88 H Blood Pressure [Ri ght Arm] Blood Pressure [Ri ght Upper Arm] Pulse Oximetry 91 87 L [facility] Room Air 01/07/25 22:45 01/07/25 23:20 01/07/25 23:20 Temperature 98.6 F Pulse Rate 85 Pulse Rate [Pulse Oximeter] 74 Respiratory Rate 20 18 18 Blood Pressure Blood Pressure [Ri ght Arm] 168/93 H Blood Pressure [Ri ght Upper Arm] Pulse Oximetry 90 96 96 [facility] Room Air Room Air 01/08/25 02:39 01/08/25 07:00 01/08/25 07:00 Temperature 97.4 F L 98.1 F Pulse Rate Pulse Rate [Pulse Oximeter] 74 72 Respiratory Rate 14 18 18 Blood Pressure Blood Pressure [Ri ght Arm] 119/71 139/70 Blood Pressure [Ri ght Upper Arm] Pulse Oximetry 91 93 93 [facility] Room Air Room Air 01/08/25 10:16 Temperature 97.7 F Pulse Rate Pulse Rate [Pulse Oximeter] 69 Respiratory Rate 18 Blood Pressure Blood Pressure [Ri ght Arm] 137/73 Blood Pressure [Ri ght Upper Arm] Pulse Oximetry 92 Oxygen [facility] DS: Data Data Completed and Pending Completed studies during hospitalization: Procedures Inspection of Lower Intestinal Tract, Via Natural or Artificial Opening Endoscopic (06/12/24) Transfusion of Nonautologous Red Blood Cells into Peripheral Vein, Percutaneous Approach (06/12/24) Labs on day of discharge: Labs from last 24 hours 01/08/25 01/07/25 01/07/25 06:17 21:28 21:19 WBC 16.55 H 19.89 H RBC 4.49 4.61 Hgb 13.6 14.0 Hct 41.0 41.8 MCV 91 91 MCH 30 30 MCHC 33 34 RDW Coeff of Mk 14.9 Plt Count 435 454 H Neut % (Auto) 83.7 H Lymph % (Auto) 8.1 L [place] % (Auto) 7.5 Eos % (Auto) 0.0 Baso % (Auto) 0.3 Neut # (Auto) 16.60 H Lymph # (Auto) 1.60 [place] # (Auto) 1.50 H Eos # (Auto) 0.00 Baso # (Auto) 0.10 Abs Immat Gran (auto) 0.10 Imm/Tot Granulo (auto) 0.4 D-Dimer Quant (PE/DVT) < 0.27 VBG pH 7.381 VBG pCO2 47 VBG pO2 37.5 VBG HCO3 28 Sodium 136 136 Potassium 4.1 4.0 Chloride 105 104 Carbon Dioxide 29 24 Anion Gap 2 L 8 BUN 21 20 Creatinine 1.1 1.1 Estimated Creat Clear 57.86 57.86 Estimated GFR 71 71 Glucose 93 109 Lactate 1.0 1.0 Calcium 9.1 9.4 Total Bilirubin 0.8 AST 28 ALT 26 Alkaline Phosphatase 70 C-Reactive Protein 4.3 H NT-Pro-B Natriuret Pep 53 Total Protein 7.0 Albumin 3.9 Procalcitonin 0.12 SARS-CoV-2 (PCR) Negative SARS-CoV-2 Influenza Type A (PCR) Negative PCR FLU A Influenza Type B (PCR) Negative PCR FLU B RSV (PCR) Negative PCR RSV POC Troponin I 0.00 L Imaging Chest x-ray: Attestation: I have reviewed the pertinent imaging results. Radiologist's impression: Two views of the chest. Comparison: Chest x-ray 06/29/2024. Findings/Impression: Patchy bibasilar airspace opacification may be indicative of multifocal infectious/inflammatory process. The heart is not abnormally enlarged. No pleural effusion or pneumothorax. No acute osseous abnormality. Discharge Plan Discharge Disposition: Home, Self-Care Date of Admission: 01/07/25 23:29 Attending Provider on Discharge: Brielle Pardo Primary Care Provider: Yousif Dalton Condition: Stable Anticipated Discharge Date/Time: 01/08/25 11:18 Discharge Medications: New prednisone 20 mg Tablet 20 mg PO DAILYWM Qty: 4 0RF doxycycline hyclate 100 mg Tablet 100 mg PO BID Qty: 20 0RF Continued meclizine 25 mg tablet 25 mg PO TID PRN sennosides [senna] 8.6 mg tablet 8.6 mg PO DAILY acetaminophen 500 mg tablet 1,000 mg PO Q6H PRN albuterol sulfate 90 mcg/actuation HFA aerosol inhaler 2 puff inhalation Q4-6H PRN (Reason: shortness of breath or wheezing) Qty: 8.5 2RF fluticasone propionate 110 mcg/actuation HFA aerosol inhaler 2 puff INHALATION BID omeprazole 20 mg capsule,delayed release(DR/EC) 20 mg PO DAILY Qty: 90 3RF prednisone 20 mg tablet 10 - 40 mg PO QDAY Qty: 14 0RF Rx Instructions: 2 QD x 4 days, 1 QD x 4 days, 1/2 QD x 4 days Discharge Orders: Discharge Order (Routine); Ordered 01/08/25 Ordered By: Brielle Pardo Patient Education: Doxycycline (By mouth), Prednisone (By mouth) Additional Instructions: COMPLETE THE 10 DAY COURSE OF DOXYCYCLINE, YOUR NEXT DOSE SHOULD BE THIS EVENING. TAKE 20MG PREDNISONE ONCE DAILY FOR 4 MORE DAYS, YOUR NEXT DOSE SHOULD BE SUNDAY - OR COMPLETE YOUR TAPER PREVIOUSLY PRESCRIBED (EITHER ARE SAFE AND EFFECTIVE). CONTINUE YOUR INHALERS AND USE OF YOUR CPAP. Activity Level: No Restrictions and Activity as Tolerated Discharge Diet: Regular Follow Up Appointments: Yousif Dalton MD [Primary Care Provider, Family Practice] - 01/14/25 11:45 am Referral Note: [facility] for follow-up. Forms: [facility] Info Instructions
--- NOTE | 2025-01-08 12:07 | PC.NURSE ---
Pt discharged @ 1201, back to home. Accompanied by son. Ambulated. IV removed. Pt reported understanding of discharge instructions. Forms signed. Pt in good condition, denies SOB, CP, N. Final room check complete.
== END 2025-01-08 12:01 | disposition home or self-care (01) | DRG 193 ==
LOC: ED 22:46 → MEDSURG 23:18
PROVIDERS: Admitting Provider Internal Medicine; Emergency Provider Emergency Medicine; PCP Family Medicine; Visit Provider Internal Medicine
DX: J18.9 Pneumonia, unspecified organism (principal); J96.01 Acute respiratory failure with hypoxia; J45.21 Mild intermittent asthma with (acute) exacerbation; G47.33 Obstructive sleep apnea (adult) (pediatric); K21.9 Gastro-esophageal reflux disease without esophagitis; M81.0 Age-related osteoporosis without current pathological fracture
CPT/HCPCS: 36415; 71046; 80048; 80053; 82803; 83605; 83880; 84145; 84484; 85025; 85027; 85379; 86140; 87631; 93005; 94640; 94761; 99285; 99291; A9270; J0696; J1650; J2405; J7512; J7626

== ENCOUNTER 2025-03-24 12:51 | Outpatient (CLI) | payer MEDICARE, BC, SELFPAY ==
[2025-03-24 22:42] LABS: PSA Diagnostic* < 0.06 ng/mL (0.10-4.00)
== END 2025-03-24 12:52 | disposition home or self-care (01) ==
LOC: NPINS 12:52
PROVIDERS: PCP Family Medicine; Visit Provider Urology
DX: C61 Malignant neoplasm of prostate (principal)
CPT/HCPCS: 84153